=== PATIENT | female | born 1935 | race Caucasian/White ===

== ENCOUNTER → 2017-09-04 11:36 | Outpatient (CLI) | payer MEDICARE, OTHER, SELFPAY ==
[2017-09-04 12:32] LABS: Add Manual Diff / Slide Review NO; Basophils Percent Auto 0.4 % (0-2); Eosinophils Percent Auto 1.8 % (2-4); Hematocrit 34.4 % (36-46); Hemoglobin 11.1 g/dL (12.0-16.0); Lymphocytes Percent Auto 13.3 % (25-40); Mean Corpuscular HGB Conc 32.3 % (30-36); Mean Corpuscular Hemoglobin 28.6 PG (26-34); Mean Corpuscular Volume 88.4 fL (80-100); Monocytes Percent Auto 9.4 % (3-14); Neutrophils Absolute Auto 6600 /uL (3000-5900); Neutrophils Percent Auto 75.1 % (50-75); Platelet Count 263 X10^3/uL (150-400); Red Blood Cell Count 3.89 X10^6/uL (4.0-5.2); Red Cell Distribution Width 16.5 % (11.6-14.8); White Blood Cell Count 8.8 X10^3/uL (4.5-11.0)
[2017-09-04 12:46] LABS: Hemoglobin A1C% w Est Avg Glu 6.5 % (4.0-6.0)
[2017-09-04 13:30] LABS: Alanine Aminotransferase 17 IU/L (9-52); Albumin 3.9 g/dL (3.5-5.0); Albumin Globulin Ratio 1.1 (1.0-2.8); Alkaline Phosphatase 83 U/L (38-126); Aspartate Aminotransferase 16 IU/L (14-36); BUN Creatinine Ratio 23.1 (6-22); Bilirubin Total 0.4 mg/dL (0.2-1.3); Blood Urea Nitrogen 30 mg/dL (7-17); Calcium 9.5 mg/dL (8.4-10.2); Carbon Dioxide 19 mmol/L (22-32); Chloride 105 mmol/L (98-107); Cholesterol 234 mg/dL (140-199); Estimated Glomerular Filt Rate 39.4 mL/min (>60); Globulin 3.4 g/dL (1.7-4.1); Glucose 147 mg/dL (80-110); HDL Cholesterol 35 mg/dL (40-60); HEMOLYSIS < 15 (0-50); LDL Cholesterol Calculated 147 mg/dL (<100); Sodium 135 mmol/L (137-145); Total Protein 7.3 g/dL (6.3-8.2); Triglycerides 262 mg/dL (35-150)
[2017-09-04 13:39] LABS: Potassium 5.4 mmol/L (3.4-5.1)
[2017-09-04 13:56] LABS: Thyroid Stimulating Hormone 2.58 uIU/mL (0.47-4.68)
== END ==
PROVIDERS: PCP Physician Assistant; Visit Provider Physician Assistant
DX: D64.9 Anemia, unspecified (principal); E11.9 Type 2 diabetes mellitus without complications; E03.9 Hypothyroidism, unspecified; I10 Essential (primary) hypertension; E78.2 Mixed hyperlipidemia
CPT/HCPCS: 36415; 80053; 80061; 83036; 84443; 85025

== ENCOUNTER → 2017-09-26 12:43 | Outpatient (CLI) | payer MEDICARE, OTHER, SELFPAY ==
--- NOTE | 2017-09-26 | DI.ECHO.S_ITS ---
[facility] +---------+ : : [address] : : : : [id number] : : : : Phone: [phone] Echocardiogram Report + + :Name: INGRID KIDD Study Date: 09/26/2017 Height: 62.5 in: :[facility] Exam Location: IS Weight: 161 lb : : Gender: Female BSA: 1.8 m2 : :: 1935 Age: 82 yrs BP: 144/52 mmHg: :Reason For Study: MURMUR : : Performed By: Tiffany Gottlieb : :Referring: SOSA BROWN : + + Interpretation Summary There is mild concentric left ventricular hypertrophy. The ejection fraction is estimated to be 55-60%. Septal motion is consistent with conduction abnormality. There is mild mitral regurgitation. There is mild aortic valve sclerosis. There is mild tricuspid regurgitation. The right ventricular systolic pressure is estimated at 31 mmHg assuming a right atrial pressure of 3 mm Hg. Procedure: A two-dimensional transthoracic echocardiogram with color flow and Doppler was performed. The study quality was technically adequate. Comparison is made with the echocardiogram of 04/13/10. The patient had a bundle branch block rhythm during the exam. Left Ventricle: There is mild concentric left ventricular hypertrophy. The left ventricle is normal in size. The left ventricular ejection fraction is normal. The ejection fraction is estimated to be 55-60%. Septal motion is consistent with conduction abnormality. Assessment of diastolic parameters indicates a relaxation abnormality of the left ventricle, consistent with normal filling pressures. Right Ventricle: The right ventricle is normal in size and function. Atria: The left atrium is mildly dilated. The right atrium is mildly dilated. There is no Doppler evidence for an interatrial shunt. Mitral Valve: The mitral valve leaflets appear thickened, but open well. There is mild mitral annular calcification. There is mild mitral regurgitation. Aortic Valve: The aortic valve is trileaflet. There is mild aortic valve sclerosis. The aortic valve opens well. No aortic regurgitation is present. Tricuspid Valve: The tricuspid valve is normal. There is mild tricuspid regurgitation. The right ventricular systolic pressure is estimated at 31 mmHg assuming a right atrial pressure of 3 mm Hg. Pulmonic Valve: The pulmonic valve leaflets are thin and pliable; valve motion is normal. There is a trace or physiologic amount of pulmonic regurgitation. Great Vessels: The aortic root is normal size. The ascending aorta is normal in size. The aortic arch is normal in size. The pulmonary is not well visualized. The IVC is of normal diameter and collapses greater than 50% with a sniff. This suggests a low right atrial pressure of 3 mm Hg. Pericardium/ Pleura There is no pericardial effusion. There is no pleural effusion. MMode/2D Measurements & Calculations LVIDd: 4.4 cm LVOT diam: 2.0 cm LVIDs: 3.0 cm Ao root diam: 2.8 cm FS: 31.5 % asc Aorta Diam: 3.1 cm EPSS: 0.59 cm Ao Arch Diam (Prox Trans): 2.8 cm IVSd: 1.2 cm LVPWd: 1.1 cm LV kraus. diameter/BSA (cm/m^2): 2.5 LV sys. diameter/BSA (cm/m^2): 1.7 LA A2 area: 20.8 cm2 RA long axis: 4.9 cm LA A4 area: 19.4 cm2 RA area: 17.0 cm2 LA length (vol): 5.3 cm RA vol: 50.6 ml LA vol: 65.0 ml RA : 28.8 ml/m2 LA vol index: 37.0 ml/m2 IVC diam: 1.8 cm RVD1 (basal): 3.6 cm RVD2 (mid): 2.7 cm TAPSE: 2.7 cm Doppler Measurements & Calculations Ao V2 max: 134.0 cm/sec LVOT Max Asad: 89.5 cm/sec Ao V2 mean: 98.1 cm/sec LV V1 max P.2 mmHg Ao max P.2 mmHg LV V1 VTI: 19.3 cm Ao mean P.2 mmHg RENETTA(I,D): 2.0 cm2 Ao V2 VTI: 29.4 cm RENETTA(V,D): 2.0 cm2 sev ratio: 0.66 RENETTA indexed to BSA (cm^2/m^2): 1.1 MV E max asad: 78.4 cm/sec TR max asad: 264.2 cm/sec MV A max asad: 98.1 cm/sec TR max P.9 mmHg MV E/A: 0.80 PA V2 max: 99.5 cm/sec Med Peak E' Asad: 3.1 cm/sec PA V2 mean: 61.3 cm/sec E/E' med: 25.7 PA mean P.8 mmHg Lat Peak E' Asad: 4.9 cm/sec PA pr(Accel): 44.1 mmHg E/E' lat: 15.8 E/e' average: 20.8 MV dec time: 0.30 sec MV P1/2t: 90.0 msec MV 2t max asad: 80.0 cm/sec MVA(2t): 2.4 cm2 Reading Physician:05:35 PM
== END ==
PROVIDERS: Family Provider Physician Assistant; PCP Physician Assistant; Visit Provider Physician Assistant
DX: I08.3 Combined rheumatic disorders of mitral, aortic and tricuspid valves (principal); R01.1 Cardiac murmur, unspecified
CPT/HCPCS: 93306

== ENCOUNTER → 2017-12-07 11:07 | Outpatient (CLI) | payer MEDICARE, OTHER, SELFPAY ==
[2017-12-07 12:08] LABS: Add Manual Diff / Slide Review NO; Basophils Percent Auto 1.1 % (0-2); Eosinophils Percent Auto 1.8 % (2-4); Hematocrit 34.7 % (36-46); Hemoglobin 11.2 g/dL (12.0-16.0); Lymphocytes Percent Auto 10.8 % (25-40); Mean Corpuscular HGB Conc 32.3 % (30-36); Mean Corpuscular Hemoglobin 28.1 PG (26-34); Mean Corpuscular Volume 87.1 fL (80-100); Monocytes Percent Auto 9.2 % (3-14); Neutrophils Absolute Auto 8700 /uL (3000-5900); Neutrophils Percent Auto 77.1 % (50-75); Platelet Count 259 X10^3/uL (150-400); Red Blood Cell Count 3.98 X10^6/uL (4.0-5.2); Red Cell Distribution Width 16.2 % (11.6-14.8); White Blood Cell Count 11.3 X10^3/uL (4.5-11.0)
[2017-12-07 12:19] LABS: Hemoglobin A1C% w Est Avg Glu 7.7 % (4.0-6.0)
[2017-12-07 12:46] LABS: Alanine Aminotransferase 27 IU/L (9-52); Albumin 3.8 g/dL (3.5-5.0); Albumin Globulin Ratio 1.5 (1.0-2.8); Alkaline Phosphatase 83 U/L (38-126); Aspartate Aminotransferase 19 IU/L (14-36); BUN Creatinine Ratio 17.5 (6-22); Bilirubin Total 0.4 mg/dL (0.2-1.3); Blood Urea Nitrogen 21 mg/dL (7-17); Calcium 9.6 mg/dL (8.4-10.2); Carbon Dioxide 24 mmol/L (22-32); Chloride 102 mmol/L (98-107); Cholesterol 210 mg/dL (140-199); Estimated Glomerular Filt Rate 43.2 mL/min (>60); Globulin 2.6 g/dL (1.7-4.1); Glucose 187 mg/dL (80-110); HDL Cholesterol 37 mg/dL (40-60); HEMOLYSIS < 15 (0-50); LDL Cholesterol Calculated 112 mg/dL (<100); Sodium 137 mmol/L (137-145); Total Protein 6.4 g/dL (6.3-8.2); Triglycerides 304 mg/dL (35-150)
[2017-12-07 12:47] LABS: Potassium 5.5 mmol/L (3.4-5.1)
== END ==
PROVIDERS: PCP Physician Assistant; Visit Provider Physician Assistant
DX: I10 Essential (primary) hypertension (principal); E78.2 Mixed hyperlipidemia; E11.9 Type 2 diabetes mellitus without complications
CPT/HCPCS: 36415; 80053; 80061; 83036; 85025

== ENCOUNTER → 2018-03-12 09:11 | Outpatient (CLI) | payer MEDICARE, OTHER, SELFPAY ==
[2018-03-12 10:10] LABS: Add Manual Diff / Slide Review NO; Basophils Percent Auto 0.5 % (0-2); Eosinophils Percent Auto 3.1 % (2-4); Hematocrit 38.3 % (36-46); Hemoglobin 12.1 g/dL (12.0-16.0); Lymphocytes Percent Auto 16.3 % (25-40); Mean Corpuscular HGB Conc 31.7 % (30-36); Mean Corpuscular Hemoglobin 27.7 PG (26-34); Mean Corpuscular Volume 87.4 fL (80-100); Monocytes Percent Auto 10.1 % (3-14); Neutrophils Absolute Auto 7800 /uL (1500-7000); Platelet Count 309 X10^3/uL (150-400); Red Blood Cell Count 4.39 X10^6/uL (4.0-5.2); Red Cell Distribution Width 16.3 % (11.6-14.8); White Blood Cell Count 11.1 X10^3/uL (4.5-11.0)
[2018-03-12 10:12] LABS: Hemoglobin A1C% w Est Avg Glu 7.6 % (4.0-6.0)
[2018-03-12 10:18] LABS: Alanine Aminotransferase 23 IU/L (9-52); Albumin 4.1 g/dL (3.5-5.0); Albumin Globulin Ratio 1.4 (1.0-2.8); Alkaline Phosphatase 80 U/L (38-126); Aspartate Aminotransferase 22 IU/L (14-36); Bilirubin Total 0.3 mg/dL (0.2-1.3); Blood Urea Nitrogen 28 mg/dL (7-17); Calcium 9.8 mg/dL (8.4-10.2); Carbon Dioxide 20 mmol/L (22-32); Chloride 105 mmol/L (98-107); Cholesterol 218 mg/dL (140-199); Estimated Glomerular Filt Rate 36.2 mL/min (>60); Glucose 174 mg/dL (80-110); HDL Cholesterol 38 mg/dL (40-60); HEMOLYSIS < 15 (0-50); LDL Cholesterol Calculated 126 mg/dL (<100); Potassium 5.1 mmol/L (3.4-5.1); Sodium 137 mmol/L (137-145); Total Protein 7.1 g/dL (6.3-8.2); Triglycerides 268 mg/dL (35-150)
[2018-03-12 10:40] LABS: Thyroid Stimulating Hormone 5.16 uIU/mL (0.47-4.68)
== END ==
PROVIDERS: Family Provider Physician Assistant; PCP Physician Assistant; Visit Provider Physician Assistant
DX: E11.9 Type 2 diabetes mellitus without complications (principal); E78.2 Mixed hyperlipidemia; E03.9 Hypothyroidism, unspecified; I10 Essential (primary) hypertension; D64.9 Anemia, unspecified
CPT/HCPCS: 36415; 80053; 80061; 83036; 84443; 85025

== ENCOUNTER 2018-08-11 13:26 | Inpatient (IN) | payer MEDICARE, OTHER, SELFPAY ==
[2018-08-11] VITALS (16 sets, daily range): BP systolic 143–180; BP diastolic 57–100; PULSE 74–105; RESP 14–35; TEMP 30.8–37.8; O2SAT 67–98; BMI 31.8; BMI 31.5
--- NOTE | 2018-08-11 13:37 | DI.RAD.S_ITS ---
PROCEDURE: XR CHEST 1V INDICATIONS: SOB TECHNIQUE: One view of the chest was acquired. COMPARISON: [facility], , CHEST 1 VIEW, 11/15/2016, 12:45. FINDINGS: Surgical changes and devices: None. Lungs and pleura: The interval development of diffuse bilateral mid and lower lung zone consolidations with slight loss of vascular distinctness, possibly accentuated by mild respiratory motion. No pneumothorax. No substantial pleural effusion seen. Mediastinum: Cardiomediastinal contours appear stable. Bones and chest wall: No suspicious bony lesions. Overlying soft tissues appear unremarkable. IMPRESSION: Development of diffuse bilateral mid and lower lung zone consolidations. Possible small bilateral pleural effusions. Findings are favored to represent multifocal pneumonia versus pulmonary edema. Recommend clinical correlation. Dictated by: Irineo Zazueta M.D. on 08/11/2018 at 14:27 Approved by: Irineo Zazueta M.D. on 08/11/2018 at 14:29
--- NOTE | 2018-08-11 13:51 | ED.SOB ---
HPI - SOB/Dyspnea General Chief Complaint: Shortness of Breath/Dyspnea Stated Complaint: sob xtoday Time Seen by Provider: 08/11/18 13:26 Source: patient and family Mode of arrival: ambulatory Limitations: altered mental status History of Present Illness 82-year-old female with history of hypertension and hyperlipidemia presents with her granddaughter in severe respiratory distress. Her granddaughter was on the phone with her and noted her to be gasping and went to check on her. On arrival her pulse ox was in the 60s which slowly rebounded when put on non-rebreather. She denies any chest pain nor fever or chills but does admit to some cough as of late. She denies any recent travel. She has had no nausea, vomiting or diarrhea MD Complaint: shortness of breath and cough Onset (ago): hour(s) Severity: severe Consistency/Duration: constant Relieving factors: oxygen and rest Exacerbating factors: exertion Associated symptoms: cough Treatment prior to arrival: none Related Data Home oxygen amount: none Home Medications Medication Instructions Recorded Confirmed allopurinol 300 mg PO QDAY #0 11/15/16 11/21/17 amlodipine 10 mg PO HS #0 11/15/16 11/21/17 aspirin 81 mg PO QDAY #0 11/15/16 11/21/17 cyanocobalamin (vitamin B-12) 1,000 mcg PO QDAY #0 11/15/16 11/21/17 diclofenac sodium [Voltaren] 1 jacquelin TOPICAL #0 11/15/16 11/21/17 fluocinonide 1 jacquelin TOPICAL BID #0 11/15/16 11/21/17 fluoxetine 20 mg PO QDAY #0 11/15/16 11/21/17 fluticasone propionate [Flonase 2 spray INTRANASAL QDAYP PRN #0 11/15/16 11/21/17 Allergy Relief] gabapentin 100 - 200 mg PO Q8HP #0 11/15/16 11/21/17 ketoconazole 1 jacquelin TOPICAL BID #0 11/15/16 11/21/17 linagliptin [Tradjenta] 5 mg PO QDAY #0 11/15/16 11/21/17 metformin [Glucophage XR] 3 tab PO QPM #0 11/15/16 11/21/17 metoprolol tartrate 150 mg PO BID #0 11/15/16 11/21/17 naproxen 500 mg PO PRN #0 11/15/16 11/21/17 omega [id number] oil [Fish Oil] 1,000 mg PO BID #0 11/15/16 11/21/17 omeprazole 40 mg PO QDAY #0 11/15/16 11/21/17 ranitidine HCl [Zantac] 150 mg PO HS #0 11/15/16 11/21/17 venlafaxine 150 mg PO QDAY #0 11/15/16 11/21/17 vitamins A,C,Z-vkpj-qqjmpy 1 cap PO QDAY #0 11/15/16 11/21/17 [PreserVision AREDS] Previous Rx's Medication Instructions Recorded clobetasol 0 TOPICAL BID #1 tube 06/20/17 amitriptyline 10 mg tablet 10 mg PO BID #60 tab 07/09/18 Allergies Allergy/AdvReac Type Severity Reaction Status Date / Time atorvastatin [From LIPITOR] AdvReac Unknown MYALGIAS Verified 08/11/18 13:40 clonazepam [CLONAZEPAM] AdvReac Unknown OVERSEDATIO Verified 08/11/18 13:40 N fenofibrate [FENOFIBRATE] AdvReac Unknown MYALGIAS Verified 08/11/18 13:40 pravastatin [PRAVASTATIN] AdvReac Unknown MYALGIAS Verified 08/11/18 13:40 zolpidem [From AMBIEN] AdvReac Unknown ATYPICAL Verified 08/11/18 13:40 BEHAVIORS/SLEEP WALK Review of Systems Constitutional Denies chills, Denies fever(s), Denies lethargy and Denies weakness Eyes Denies change in vision, Denies eye discharge, Denies irritation and Denies loss of vision ENT Ears, Nose, Mouth, and Throat: Denies change in voice, Denies neck pain and Denies sore throat Cardiovascular Denies chest pain, Denies irregular heart rhythm, Denies lightheadedness, Denies palpitations, Reports dyspnea, Reports dyspnea on exertion and Denies orthopnea Respiratory Reports cough, Reports dyspnea, Reports dyspnea on exertion and Denies wheezing Gastrointestinal Gastrointestinal: Denies abdominal pain, Denies change in bowel habits, Denies diarrhea, Denies nausea and Denies vomiting Genitourinary Denies hematuria, Denies flank pain, Denies urinary incontinence and Denies urinary urgency Musculoskeletal Denies neck pain Integumentary/Breasts Denies pruritus, Denies erythema, Denies rash and Denies wounds Neurologic Denies confusion, Denies loss of vision and Denies weakness Psychiatric Denies anxiety, Denies confusion, Denies depression, Denies homicidal ideation and Denies suicidal ideation Endocrine Denies palpitations Hematologic/Lymphatic Denies easy bruising Allergic/Immunologic Denies wheezing PFSH Social History Smoking Status: Never smoker Social History Smoking Status: Never smoker Exam Narrative Exam Narrative: GENERAL: 82-year-old female in severe respiratory distress with decreased mentation, use of accessory muscles HEAD: Atraumatic. Normocephalic. No temporal or scalp tenderness. EYES: Pupils equal round and reactive. Extraocular motions intact. No scleral icterus. No injection or drainage. ENT: Nose without bleeding, purulent drainage or septal hematoma. Throat without erythema, tonsillar hypertrophy or exudate. Uvula midline. Airway patent. NECK: Trachea midline. No JVD or lymphadenopathy. Supple, nontender, no meningeal signs. CARDIOVASCULAR: Regular rate and rhythm without murmurs, gallops, or rubs. RESPIRATORY: Decreased breath sounds bilaterally rhonchi and prolonged expiratory phase. Short, shallow breaths. Breath sounds decreased on left compared to right GASTROINTESTINAL: Abdomen soft, non-tender, nondistended. No hepato-splenomegaly, or palpable masses. No guarding. EXTREMITIES: No clubbing, cyanosis, or edema. No joint tenderness, effusion, or edema noted. BACK: Nontender without deformity or crepitance. No flank tenderness. NEURO: Confused about location and date but knows her name SKIN: No rash or erythema. Initial Vital Signs Initial Vital Signs: Vital Signs Temperature 99.2 F 08/11/18 13:40 Pulse Rate 105 H 08/11/18 13:40 Respiratory Rate 35 H 08/11/18 13:40 Blood Pressure 150/78 H 08/11/18 13:40 Pulse Oximetry 67 L 08/11/18 13:40 Course Orders Ordered: ED Orders 08/11/18 13:37 XR chest 1V Stat EKG-12 Lead Stat 08/11/18 13:40 B Type Natriuretic Peptide Stat Complete Blood Count AUTO DIFF Stat Comprehensive Metabolic Panel Stat Lactate (Lactic Acid) Stat Lipase Stat Procalcitonin Stat Troponin & CK Cardiac Panel Stat 08/11/18 14:10 Blood Culture Stat 08/11/18 14:15 Arterial Blood Gas Stat 08/11/18 14:58 Consult to Dietitian, Adult Routine 08/11/18 15:00 BiPAP Ventilatory Support RT PROTOCOL 08/12/18 05:00 Basic Metabolic Panel Routine Complete Blood Count AUTO DIFF Routine 08/12/18 05:01 Lactate (Lactic Acid) Stat Enoxaparin Sodium (Lovenox) 30 mg SUBCUT DAILY [facility] Sodium Chloride (Normal Saline 0.9%) 1,000 mls @ 150 mls/hr IV CONT [facility] Last Infusion: 08/11/18 14:33 Dose: 0 mls/hr Admin: 08/11/18 14:26 Dose: 150 mls/hr Levofloxacin (Levaquin) 500 mg in 100 mls @ 100 mls/hr IV NOW ONE Stop: 08/11/18 15:20 Last Admin: 08/11/18 14:35 Dose: 100 mls/hr Sodium Chloride (Normal Saline 0.9%) 2,367 mls @ 789 mls/hr 30 ml/kg infuse over 3 hr (2367 ml) IV NOW ONE Stop: 08/11/18 17:20 Last Admin: 08/11/18 14:35 Dose: 789 mls/hr Famotidine (Pepcid) 20 mg in 50 mls @ 200 mls/hr IV Q24H [facility] Sodium Chloride (Normal Saline 0.9%) 1,000 mls @ 100 mls/hr IV CONT [facility] Ceftriaxone Sodium/Dextrose (Rocephin) 1 gm in 50 mls @ 100 mls/hr IV Q24H [facility] Discontinued Medications Aspirin (Aspirin Chew) 324 mg PO NOW ONE Stop: 08/11/18 13:38 Last Admin: 08/11/18 14:32 Dose: 324 mg Reevaluation(s) Reevaluation #1: Patient showing tremendous improvement on BiPAP severe sepsis recognized at return of lactate @1340 Vital Signs - 8 hr 08/11/18 13:40 08/11/18 13:43 08/11/18 14:00 Temperature 99.2 F Pulse Rate 105 H 95 H Respiratory Rate 35 H 21 Blood Pressure 150/78 H Blood Pressure [Left Arm] 166/61 H Pulse Oximetry 67 L 88 L 93 08/11/18 14:56 Temperature Pulse Rate 79 Respiratory Rate 15 Blood Pressure Blood Pressure [Left Arm] 180/100 H Pulse Oximetry 94 MDM - SOB/Dyspnea Lab Data Result diagrams: 08/11/18 13:40 08/11/18 13:40 Lab Results 08/11/18 08/11/18 08/11/18 Range/Units 13:40 13:40 13:40 WBC 22.6 H (4.5-11.0) X10^3/uL RBC 4.65 (4.0-5.2) X10^6/uL Hgb 13.4 (12.0-16.0) g/dL Hct 41.1 (36-46) % MCV 88.6 (80-100) fL MCH 28.9 (26-34) PG MCHC 32.6 (30-36) % RDW 15.4 H (11.6-14.8) % Plt Count 308 (150-400) X10^3/uL Neut % (Auto) 92.8 H (50-75) % Lymph % (Auto) 2.6 L (25-40) % [place] % (Auto) 4.2 (3-14) % Eos % (Auto) 0.1 L (2-4) % Baso % (Auto) 0.3 (0-2) % Neut # (Auto) 17460 H (6271-3579) /uL Lymph # (Auto) 600 L (8086-1100) /uL [place] # (Auto) 900 (0-900) /uL Eos # (Auto) 0 (0-450) /uL Baso # (Auto) 100 (0-100) /uL ABG pH (7.35-7.45) ABG pCO2 (35-45) mmHg ABG pO2 (80-100) mmHg ABG HCO3 (22-26) mmol/L ABG Total CO2 (21-31) mmol/L ABG O2 Saturation (95-100) % ABG Base Excess (-2-2) mmol/L FiO2 Sodium 134 L (137-145) mmol/L Potassium 5.4 H (3.4-5.1) mmol/L Chloride 102 (98-107) mmol/L Carbon Dioxide 20 L (22-32) mmol/L BUN 22 H (7-17) mg/dL Creatinine 1.30 H (0.52-1.04) mg/dL Estimated GFR 39.4 L (>60) mL/min BUN/Creatinine Ratio 16.9 (6-22) Glucose 302 H (80-110) mg/dL Lactate (0.7-2.1) mmol/L Calcium 9.7 (8.4-10.2) mg/dL Total Bilirubin 0.5 (0.2-1.3) mg/dL AST 33 (14-36) IU/L ALT 30 (9-52) IU/L Alkaline Phosphatase 79 (38-126) U/L Total Creatine Kinase 51 (30-135) U/L CK-MB (CK-2) TNP CK-MB (CK-2) Rel Index TNP Troponin I < 0.012 (0.01-0.034) ng/mL B-Natriuretic Peptide 293 H (<100) Total Protein 7.0 (6.3-8.2) g/dL Albumin 4.1 (3.5-5.0) g/dL Globulin 2.9 (1.7-4.1) g/dL Albumin/Globulin Ratio 1.4 (1.0-2.8) Lipase 84 (23-300) U/L Procalcitonin 0.13 (<0.5) ng/mL 08/11/18 08/11/18 Range/Units 13:40 14:15 WBC (4.5-11.0) X10^3/uL RBC (4.0-5.2) X10^6/uL Hgb (12.0-16.0) g/dL Hct (36-46) % MCV (80-100) fL MCH (26-34) PG MCHC (30-36) % RDW (11.6-14.8) % Plt Count (150-400) X10^3/uL Neut % (Auto) (50-75) % Lymph % (Auto) (25-40) % [place] % (Auto) (3-14) % Eos % (Auto) (2-4) % Baso % (Auto) (0-2) % Neut # (Auto) (2528-5626) /uL Lymph # (Auto) (7419-0170) /uL [place] # (Auto) (0-900) /uL Eos # (Auto) (0-450) /uL Baso # (Auto) (0-100) /uL ABG pH 7.32 L (7.35-7.45) ABG pCO2 34.7 L (35-45) mmHg ABG pO2 77 L (80-100) mmHg ABG HCO3 18 L (22-26) mmol/L ABG Total CO2 19 L (21-31) mmol/L ABG O2 Saturation 94 L (95-100) % ABG Base Excess -8.0 L (-2-2) mmol/L FiO2 0.50 Sodium (137-145) mmol/L Potassium (3.4-5.1) mmol/L Chloride (98-107) mmol/L Carbon Dioxide (22-32) mmol/L BUN (7-17) mg/dL Creatinine (0.52-1.04) mg/dL Estimated GFR (>60) mL/min BUN/Creatinine Ratio (6-22) Glucose (80-110) mg/dL Lactate 3.6 H (0.7-2.1) mmol/L Calcium (8.4-10.2) mg/dL Total Bilirubin (0.2-1.3) mg/dL AST (14-36) IU/L ALT (9-52) IU/L Alkaline Phosphatase (38-126) U/L Total Creatine Kinase (30-135) U/L CK-MB (CK-2) CK-MB (CK-2) Rel Index Troponin I (0.01-0.034) ng/mL B-Natriuretic Peptide (<100) Total Protein (6.3-8.2) g/dL Albumin (3.5-5.0) g/dL Globulin (1.7-4.1) g/dL Albumin/Globulin Ratio (1.0-2.8) Lipase (23-300) U/L Procalcitonin (<0.5) ng/mL Discharge Plan Departure Patient Disposition: Admitted As Inpatient Clinical Impression: Sepsis with acute hypoxic respiratory failure, Severe sepsis Community acquired pneumonia Qualifiers: Laterality: unspecified laterality Qualified Code(s): J18.9 - Pneumonia, unspecified organism Referrals: Bina Montes PA-C [Primary Care Provider] -
[2018-08-11 13:56] LABS: Add Manual Diff / Slide Review NO; Basophils Absolute Auto 100 /uL (0-100); Basophils Percent Auto 0.3 % (0-2); Eosinophils Absolute Auto 0 /uL (0-450); Eosinophils Percent Auto 0.1 % (2-4); Hematocrit 41.1 % (36-46); Hemoglobin 13.4 g/dL (12.0-16.0); Lymphocytes Absolute Auto 600 /uL (1100-4500); Lymphocytes Percent Auto 2.6 % (25-40); Mean Corpuscular HGB Conc 32.6 % (30-36); Mean Corpuscular Hemoglobin 28.9 PG (26-34); Mean Corpuscular Volume 88.6 fL (80-100); Monocytes Absolute Auto 900 /uL (0-900); Monocytes Percent Auto 4.2 % (3-14); Neutrophils Absolute Auto 20900 /uL (1500-7000); Neutrophils Percent Auto 92.8 % (50-75); Platelet Count 308 X10^3/uL (150-400); Red Blood Cell Count 4.65 X10^6/uL (4.0-5.2); Red Cell Distribution Width 15.4 % (11.6-14.8); White Blood Cell Count 22.6 X10^3/uL (4.5-11.0)
--- NOTE | 2018-08-11 14:01 | PC.NURSE ---
Pt to ER 11 via w/c accompanied by family member. C/O SOB since yesterday. Pt lives alone and unable to speak due to shortness of breath. O2 stats 67% on R/A. RT called. Pt placed on Bipap.
[2018-08-11 14:08] LABS: Alanine Aminotransferase 30 IU/L (9-52); Albumin 4.1 g/dL (3.5-5.0); Albumin Globulin Ratio 1.4 (1.0-2.8); Alkaline Phosphatase 79 U/L (38-126); Aspartate Aminotransferase 33 IU/L (14-36); BUN Creatinine Ratio 16.9 (6-22); Bilirubin Total 0.5 mg/dL (0.2-1.3); Blood Urea Nitrogen 22 mg/dL (7-17); Calcium 9.7 mg/dL (8.4-10.2); Carbon Dioxide 20 mmol/L (22-32); Chloride 102 mmol/L (98-107); Creatine Kinase 51 U/L (30-135); Estimated Glomerular Filt Rate 39.4 mL/min (>60); Globulin 2.9 g/dL (1.7-4.1); Glucose 302 mg/dL (80-110); HEMOLYSIS 16 (0-50); Lipase 84 U/L (23-300); Sodium 134 mmol/L (137-145)
--- NOTE | 2018-08-11 14:10 | PC.NURSE ---
[employer] at bedside for 2nd set of BC. Grand daughter at bedside. Pt on bipap. AA&Ox 3 at this time. Tolerating Bipap at 12/6 60%
[2018-08-11 14:15] LABS: Lactate (Lactic Acid) 3.6 mmol/L (0.7-2.1)
[2018-08-11 14:16] LABS: Potassium 5.4 mmol/L (3.4-5.1)
--- NOTE | 2018-08-11 14:16 | PC.NURSE ---
Lactic Acid 3.6. notified.
[2018-08-11 14:20] LABS: Troponin I < 0.012 ng/mL (0.01-0.034)
[2018-08-11] MEDS: SODIUM CHLORIDE 0.9% 1,000 ML 150 ML IV (14:26)
--- NOTE | 2018-08-11 14:27 | ED_ITS ---
HPI - SOB/Dyspnea General Chief Complaint: Shortness of Breath/Dyspnea Stated Complaint: sob xtoday Time Seen by Provider: 08/11/18 13:26 Source: patient and family Mode of arrival: ambulatory Limitations: altered mental status History of Present Illness 82-year-old female with history of hypertension and hyperlipidemia presents with her granddaughter in severe respiratory distress. Her granddaughter was on the phone with her and noted her to be gasping and went to check on her. On arrival her pulse ox was in the 60s which slowly rebounded when put on non-rebreather. She denies any chest pain nor fever or chills but does admit to some cough as of late. She denies any recent travel. She has had no nausea, vomiting or diarrhea MD Complaint: shortness of breath and cough Onset (ago): hour(s) Severity: severe Consistency/Duration: constant Relieving factors: oxygen and rest Exacerbating factors: exertion Associated symptoms: cough Treatment prior to arrival: none Related Data Home oxygen amount: none Home Medications Medication Instructions Recorded Confirmed allopurinol 300 mg PO QDAY #0 11/15/16 11/21/17 amlodipine 10 mg PO HS #0 11/15/16 11/21/17 aspirin 81 mg PO QDAY #0 11/15/16 11/21/17 cyanocobalamin (vitamin B-12) 1,000 mcg PO QDAY #0 11/15/16 11/21/17 diclofenac sodium [Voltaren] 1 jacquelin TOPICAL #0 11/15/16 11/21/17 fluocinonide 1 jacquelin TOPICAL BID #0 11/15/16 11/21/17 fluoxetine 20 mg PO QDAY #0 11/15/16 11/21/17 fluticasone propionate [Flonase 2 spray INTRANASAL QDAYP PRN #0 11/15/16 11/21/17 Allergy Relief] gabapentin 100 - 200 mg PO Q8HP #0 11/15/16 11/21/17 ketoconazole 1 jacquelin TOPICAL BID #0 11/15/16 11/21/17 linagliptin [Tradjenta] 5 mg PO QDAY #0 11/15/16 11/21/17 metformin [Glucophage XR] 3 tab PO QPM #0 11/15/16 11/21/17 metoprolol tartrate 150 mg PO BID #0 11/15/16 11/21/17 naproxen 500 mg PO PRN #0 11/15/16 11/21/17 omega 5-zmg-rci-fish oil [Fish Oil] 1,000 mg PO BID #0 11/15/16 11/21/17 omeprazole 40 mg PO QDAY #0 11/15/16 11/21/17 ranitidine HCl [Zantac] 150 mg PO HS #0 11/15/16 11/21/17 venlafaxine 150 mg PO QDAY #0 11/15/16 11/21/17 vitamins A,C,O-hfye-nbljgj 1 cap PO QDAY #0 11/15/16 11/21/17 [PreserVision AREDS] Previous Rx's Medication Instructions Recorded clobetasol 0 TOPICAL BID #1 tube 06/20/17 amitriptyline 10 mg tablet 10 mg PO BID #60 tab 07/09/18 Allergies Allergy/AdvReac Type Severity Reaction Status Date / Time atorvastatin [From LIPITOR] AdvReac Unknown MYALGIAS Verified 08/11/18 13:40 clonazepam [CLONAZEPAM] AdvReac Unknown OVERSEDATIO Verified 08/11/18 13:40 N fenofibrate [FENOFIBRATE] AdvReac Unknown MYALGIAS Verified 08/11/18 13:40 pravastatin [PRAVASTATIN] AdvReac Unknown MYALGIAS Verified 08/11/18 13:40 zolpidem [From AMBIEN] AdvReac Unknown ATYPICAL Verified 08/11/18 13:40 BEHAVIORS/SLEEP WALK Review of Systems Constitutional Denies chills, Denies fever(s), Denies lethargy and Denies weakness Eyes Denies change in vision, Denies eye discharge, Denies irritation and Denies loss of vision ENT Ears, Nose, Mouth, and Throat: Denies change in voice, Denies neck pain and Denies sore throat Cardiovascular Denies chest pain, Denies irregular heart rhythm, Denies lightheadedness, Denies palpitations, Reports dyspnea, Reports dyspnea on exertion and Denies orthopnea Respiratory Reports cough, Reports dyspnea, Reports dyspnea on exertion and Denies wheezing Gastrointestinal Gastrointestinal: Denies abdominal pain, Denies change in bowel habits, Denies diarrhea, Denies nausea and Denies vomiting Genitourinary Denies hematuria, Denies flank pain, Denies urinary incontinence and Denies urinary urgency Musculoskeletal Denies neck pain Integumentary/Breasts Denies pruritus, Denies erythema, Denies rash and Denies wounds Neurologic Denies confusion, Denies loss of vision and Denies weakness Psychiatric Denies anxiety, Denies confusion, Denies depression, Denies homicidal ideation and Denies suicidal ideation Endocrine Denies palpitations Hematologic/Lymphatic Denies easy bruising Allergic/Immunologic Denies wheezing PFSH Social History Smoking Status: Never smoker Social History Smoking Status: Never smoker Exam Narrative Exam Narrative: GENERAL: 82-year-old female in severe respiratory distress with decreased mentation, use of accessory muscles HEAD: Atraumatic. Normocephalic. No temporal or scalp tenderness. EYES: Pupils equal round and reactive. Extraocular motions intact. No scleral ic terus. No injection or drainage. ENT: Nose without bleeding, purulent drainage or septal hematoma. Throat without erythema, tonsillar hypertrophy or exudate. Uvula midline. Airway patent. NECK: Trachea midline. No JVD or lymphadenopathy. Supple, nontender, no meningeal signs. CARDIOVASCULAR: Regular rate and rhythm without murmurs, gallops, or rubs. RESPIRATORY: Decreased breath sounds bilaterally rhonchi and prolonged expiratory phase. Short, shallow breaths. Breath sounds decreased on left compared to right GASTROINTESTINAL: Abdomen soft, non-tender, nondistended. No hepato-splenomegaly , or palpable masses. No guarding. EXTREMITIES: No clubbing, cyanosis, or edema. No joint tenderness, effusion, or edema noted. BACK: Nontender without deformity or crepitance. No flank tenderness. NEURO: Confused about location and date but knows her name SKIN: No rash or erythema. Initial Vital Signs Initial Vital Signs: Vital Signs Temperature 99.2 F 08/11/18 13:40 Pulse Rate 105 H 08/11/18 13:40 Respiratory Rate 35 H 08/11/18 13:40 Blood Pressure 150/78 H 08/11/18 13:40 Pulse Oximetry 67 L 08/11/18 13:40 Course Orders Ordered: ED Orders 08/11/18 13:37 XR chest 1V Stat EKG-12 Lead Stat 08/11/18 13:40 B Type Natriuretic Peptide Stat Complete Blood Count AUTO DIFF Stat Comprehensive Metabolic Panel Stat Lactate (Lactic Acid) Stat Lipase Stat Procalcitonin Stat Troponin & CK Cardiac Panel Stat 08/11/18 14:10 Blood Culture Stat 08/11/18 14:15 Arterial Blood Gas Stat 08/11/18 14:58 Consult to Dietitian, Adult Routine 08/11/18 15:00 BiPAP Ventilatory Support RT PROTOCOL 08/12/18 05:00 Basic Metabolic Panel Routine Complete Blood Count AUTO DIFF Routine 08/12/18 05:01 Lactate (Lactic Acid) Stat Enoxaparin Sodium (Lovenox) 30 mg SUBCUT DAILY [facility] Sodium Chloride (Normal Saline 0.9%) 1,000 mls @ 150 mls/hr IV CONT WILI Last Infusion: 08/11/18 14:33 Dose: 0 mls/hr Admin: 08/11/18 14:26 Dose: 150 mls/hr Levofloxacin (Levaquin) 500 mg in 100 mls @ 100 mls/hr IV NOW ONE Stop: 08/11/18 15:20 Last Admin: 08/11/18 14:35 Dose: 100 mls/hr Sodium Chloride (Normal Saline 0.9%) 2,367 mls @ 789 mls/hr 30 ml/kg infuse over 3 hr (2367 ml) IV NOW ONE Stop: 08/11/18 17:20 Last Admin: 08/11/18 14:35 Dose: 789 mls/hr Famotidine (Pepcid) 20 mg in 50 mls @ 200 mls/hr IV Q24H [facility] Sodium Chloride (Normal Saline 0.9%) 1,000 mls @ 100 mls/hr IV CONT [facility] Ceftriaxone Sodium/Dextrose (Rocephin) 1 gm in 50 mls @ 100 mls/hr IV Q24H [facility] Discontinued Medications Aspirin (Aspirin Chew) 324 mg PO NOW ONE Stop: 08/11/18 13:38 Last Admin: 08/11/18 14:32 Dose: 324 mg Reevaluation(s) Reevaluation #1: Patient showing tremendous improvement on BiPAP severe sepsis recognized at return of lactate @1340 Vital Signs - 8 hr 08/11/18 13:40 08/11/18 13:43 08/11/18 14:00 Temperature 99.2 F Pulse Rate 105 H 95 H Respiratory Rate 35 H 21 Blood Pressure 150/78 H Blood Pressure [Left Arm] 166/61 H Pulse Oximetry 67 L 88 L 93 08/11/18 14:56 Temperature Pulse Rate 79 Respiratory Rate 15 Blood Pressure Blood Pressure [Left Arm] 180/100 H Pulse Oximetry 94 MDM - SOB/Dyspnea Lab Data Result diagrams: 08/11/18 13:40 08/11/18 13:40 Lab Results 08/11/18 08/11/18 08/11/18 Range/Units 13:40 13:40 13:40 WBC 22.6 H (4.5-11.0) X10^3/uL RBC 4.65 (4.0-5.2) X10^6/uL Hgb 13.4 (12.0-16.0) g/dL Hct 41.1 (36-46) % MCV 88.6 (80-100) fL MCH 28.9 (26-34) PG MCHC 32.6 (30-36) % RDW 15.4 H (11.6-14.8) % Plt Count 308 (150-400) X10^3/uL Neut % (Auto) 92.8 H (50-75) % Lymph % (Auto) 2.6 L (25-40) % [place] % (Auto) 4.2 (3-14) % Eos % (Auto) 0.1 L (2-4) % Baso % (Auto) 0.3 (0-2) % Neut # (Auto) 76945 H (8007-7800) /uL Lymph # (Auto) 600 L (1264-6720) /uL [place] # (Auto) 900 (0-900) /uL Eos # (Auto) 0 (0-450) /uL Baso # (Auto) 100 (0-100) /uL ABG pH (7.35-7.45) ABG pCO2 (35-45) mmHg ABG pO2 (80-100) mmHg ABG HCO3 (22-26) mmol/L ABG Total CO2 (21-31) mmol/L ABG O2 Saturation (95-100) % ABG Base Excess (-2-2) mmol/L FiO2 Sodium 134 L (137-145) mmol/L Potassium 5.4 H (3.4-5.1) mmol/L Chloride 102 (98-107) mmol/L Carbon Dioxide 20 L (22-32) mmol/L BUN 22 H (7-17) mg/dL Creatinine 1.30 H (0.52-1.04) mg/dL Estimated GFR 39.4 L (>60) mL/min BUN/Creatinine Ratio 16.9 (6-22) Glucose 302 H (80-110) mg/dL Lactate (0.7-2.1) mmol/L Calcium 9.7 (8.4-10.2) mg/dL Total Bilirubin 0.5 (0.2-1.3) mg/dL AST 33 (14-36) IU/L ALT 30 (9-52) IU/L Alkaline Phosphatase 79 (38-126) U/L Total Creatine Kinase 51 (30-135) U/L CK-MB (CK-2) TNP CK-MB (CK-2) Rel Index TNP Troponin I < 0.012 (0.01-0.034) ng/mL B-Natriuretic Peptide 293 H (<100) Total Protein 7.0 (6.3-8.2) g/dL Albumin 4.1 (3.5-5.0) g/dL Globulin 2.9 (1.7-4.1) g/dL Albumin/Globulin Ratio 1.4 (1.0-2.8) Lipase 84 (23-300) U/L Procalcitonin 0.13 (<0.5) ng/mL 08/11/18 08/11/18 Range/Units 13:40 14:15 WBC (4.5-11.0) X10^3/uL RBC (4.0-5.2) X10^6/uL Hgb (12.0-16.0) g/dL Hct (36-46) % MCV (80-100) fL MCH (26-34) PG MCHC (30-36) % RDW (11.6-14.8) % Plt Count (150-400) X10^3/uL Neut % (Auto) (50-75) % Lymph % (Auto) (25-40) % [place] % (Auto) (3-14) % Eos % (Auto) (2-4) % Baso % (Auto) (0-2) % Neut # (Auto) (7793-5439) /uL Lymph # (Auto) (6002-0088) /uL [place] # (Auto) (0-900) /uL Eos # (Auto) (0-450) /uL Baso # (Auto) (0-100) /uL ABG pH 7.32 L (7.35-7.45) ABG pCO2 34.7 L (35-45) mmHg ABG pO2 77 L (80-100) mmHg ABG HCO3 18 L (22-26) mmol/L ABG Total CO2 19 L (21-31) mmol/L ABG O2 Saturation 94 L (95-100) % ABG Base Excess -8.0 L (-2-2) mmol/L FiO2 0.50 Sodium (137-145) mmol/L Potassium (3.4-5.1) mmol/L Chloride (98-107) mmol/L Carbon Dioxide (22-32) mmol/L BUN (7-17) mg/dL Creatinine (0.52-1.04) mg/dL Estimated GFR (>60) mL/min BUN/Creatinine Ratio (6-22) Glucose (80-110) mg/dL Lactate 3.6 H (0.7-2.1) mmol/L Calcium (8.4-10.2) mg/dL Total Bilirubin (0.2-1.3) mg/dL AST (14-36) IU/L ALT (9-52) IU/L Alkaline Phosphatase (38-126) U/L Total Creatine Kinase (30-135) U/L CK-MB (CK-2) CK-MB (CK-2) Rel Index Troponin I (0.01-0.034) ng/mL B-Natriuretic Peptide (<100) Total Protein (6.3-8.2) g/dL Albumin (3.5-5.0) g/dL Globulin (1.7-4.1) g/dL Albumin/Globulin Ratio (1.0-2.8) Lipase (23-300) U/L Procalcitonin (<0.5) ng/mL Discharge Plan Departure Patient Disposition: Admitted As Inpatient Clinical Impression: Sepsis with acute hypoxic respiratory failure, Severe sepsis Community acquired pneumonia Qualifiers: Laterality: unspecified laterality Qualified Code(s): J18.9 - Pneumonia, unspecified organism Referrals: Bina Montes PA-C [Primary Care Provider] -
[2018-08-11 14:30] LABS: B Type Natriuretic Peptide 293 (<100)
[2018-08-11] MEDS: ASPIRIN 81 MG TAB 324 MG PO (14:32)
[2018-08-11] MEDS: SODIUM CHLORIDE 0.9% 789 ML IV (14:35)
[2018-08-11] MEDS: levoFLOXacin 500 MG/100 ML PIGGYBACK 100 MG IV (14:35)
[2018-08-11 14:37] LABS: Procalcitonin 0.13 ng/mL (<0.5)
--- NOTE | 2018-08-11 14:59 | PC.NURSE ---
Pt tolerating Bipap at this time. Family member at bedside. Conversing with family member. Denies any pain at this time. Pt and family aware of plan of care and admission. Awaiting on room placement. Will continue to monitor.
[2018-08-11 15:02] LABS: PCO2 ABG 34.7 mmHg (35-45); pH ABG 7.32 (7.35-7.45)
--- NOTE | 2018-08-11 15:02 | P.HP_ITS ---
History of Present Illness Date Patient Seen: 08/11/18 Time Patient Seen: 15:26 Chief complaint: sob xtoday Narrative: This is an 82-year-old female presenting to the emergency department this morning with sudden onset of pneumonia, confusion, hypoxia. She appears to have acute sepsis with a lactate of 3.6 and white blood count of 22. She spent yesterday at her grandson's graduation from high school in [place], came home and went to bed normally and when she woke up this morning was apparently ill. It is challenging to piece together the events as she is wearing a BiPAP mask and also seems somewhat confused by what happened. She tends to be tangential. Her granddaughter Lroen Self is present and explains that at 11:30 a.m. this morning she called her to invite her to dinner. Within a minute she realized that her grandmother was incoherent and so went right over to get her and bring her to the hospital. She admits having some chills but denies fevers. She had mild substernal chest pain but no reported cough. On presentation to the emergency department she was 65% on room air and the chest x-ray shows bilateral pneumonia.. She lives alone in her own house 4 blocks away from the hospital. She has had pneumonia once before apparently related to an episode of shingles. She is not a smoker but did smoke until she was age 42 approximately. She is not on any inhalers. There is no wheezing. Patient History Medical History (Updated 08/11/18 @ 15:32 by Brittney Sy MD) Depression (Acute) Diabetes (Acute) GERD (gastroesophageal reflux disease) (Acute) Gout (Acute) Hypertension (Acute) Surgical History (Updated 08/11/18 @ 15:31 by Brittney Sy MD) History of appendectomy (Acute) History of tonsillectomy (Acute) Family History (Updated 08/11/18 @ 15:32 by Brittney Sy MD) Father Myocardial infarct Mother History of abdominal surgery Social History Smoking Status: Never smoker Family & Social History Tobacco & Substance use: Smoking Status Never smoker Substance Use Type does not use Comment: She lives alone in her own home, 4 [address] from [address] hospital. She stopped smoking at around age 42. She stopped drinking alcohol about 40 years ago. She denies illicit drugs and marijuana. She has a large family. Her backup decision makers include Abimbola Irizarry, her daughter and all also her granddaughter Loren Self, who lives near her and is with her today. Meds Home Medications Medication Instructions Recorded Confirmed Type allopurinol 300 mg PO QDAY #0 11/15/16 11/21/17 History amlodipine 10 mg PO HS #0 11/15/16 11/21/17 History aspirin 81 mg PO QDAY #0 11/15/16 11/21/17 History cyanocobalamin (vitamin B-12) 1,000 mcg PO QDAY #0 11/15/16 11/21/17 History diclofenac sodium [Voltaren] 1 jacquelin TOPICAL #0 11/15/16 11/21/17 History fluocinonide 1 jacquelin TOPICAL BID #0 11/15/16 11/21/17 History fluoxetine 20 mg PO QDAY #0 11/15/16 11/21/17 History fluticasone propionate [Flonase 2 spray INTRANASAL QDAYP PRN #0 11/15/16 11/21/17 History Allergy Relief] gabapentin 100 - 200 mg PO Q8HP #0 11/15/16 11/21/17 History ketoconazole 1 jacquelin TOPICAL BID #0 11/15/16 11/21/17 History linagliptin [Tradjenta] 5 mg PO QDAY #0 11/15/16 11/21/17 History metformin [Glucophage XR] 3 tab PO QPM #0 11/15/16 11/21/17 History metoprolol tartrate 150 mg PO BID #0 11/15/16 11/21/17 History naproxen 500 mg PO PRN #0 11/15/16 11/21/17 History omega 0-ysg-fyo-fish oil [Fish Oil] 1,000 mg PO BID #0 11/15/16 11/21/17 History omeprazole 40 mg PO QDAY #0 11/15/16 11/21/17 History ranitidine HCl [Zantac] 150 mg PO HS #0 11/15/16 11/21/17 History venlafaxine 150 mg PO QDAY #0 11/15/16 11/21/17 History vitamins A,C,D-lluv-erttvh 1 cap PO QDAY #0 11/15/16 11/21/17 History [PreserVision AREDS] clobetasol 0 TOPICAL BID #1 tube 06/20/17 11/21/17 Rx amitriptyline 10 mg tablet 10 mg PO BID #60 tab 07/09/18 Rx Allergies Allergy/AdvReac Type Severity Reaction Status Date / Time atorvastatin [From LIPITOR] AdvReac Unknown MYALGIAS Verified 08/11/18 13:40 clonazepam [CLONAZEPAM] AdvReac Unknown OVERSEDATIO Verified 08/11/18 13:40 N fenofibrate [FENOFIBRATE] AdvReac Unknown MYALGIAS Verified 08/11/18 13:40 pravastatin [PRAVASTATIN] AdvReac Unknown MYALGIAS Verified 08/11/18 13:40 zolpidem [From AMBIEN] AdvReac Unknown ATYPICAL Verified 08/11/18 13:40 BEHAVIORS/SLEEP WALK Review of Systems Review of Systems Positive for confusion, chills, hypoxia, shortness of breath. Negative for exertional chest pain, coughing, fevers, abdominal pain, nausea, vomiting, bleeding, rash, diarrhea, hematuria, joint pain, seizures, headaches, new allergies, hearing loss, trouble talking, trouble walking. All systems reviewed & are unremarkable except as noted in HPI and below Exam Vital Signs (past 8 hours): - 08/11/18 13:40 08/11/18 13:43 08/11/18 14:00 Temperature 99.2 F Pulse Rate 105 H 95 H Respiratory Rate 35 H 21 Blood Pressure 150/78 H Blood Pressure [Left Arm] 166/61 H Pulse Oximetry 67 L 88 L 93 08/11/18 14:56 Temperature Pulse Rate 79 Respiratory Rate 15 Blood Pressure Blood Pressure [Left Arm] 180/100 H Pulse Oximetry 94 Oxygen Delivery Method BiPAP Oxygen Flow Rate 6 Narrative Exam Narrative: She is alert and oriented x3. She is wearing a BiPAP mask which muffles her voice. She tends to be tangential when answering questions. She is in no current distress but had been very recently. Pupils are equally round and reactive to light and accommodation. Sclerae are pink and nonicteric. Extraocular muscles are intact. Throat exam appears to be normal but is limited by her BiPAP mask. No lymph nodes are felt head, neck, supra clavicular area. There is no thyromegaly. JVD is less than 6 cm. No carotid bruits are heard. Heart is regular rate and rhythm without murmur. Lungs are clear to auscultation bilaterally while wearing the BiPAP mask and ventilator. Abdomen is soft, obese, nontender, no organomegaly. Extremities have no ankle edema. Skin exam no rashes or jaundice. Neuro exam motor function is 4/5 throughout. Deep tendon reflexes are normal. Cranial nerves 2-12 tested intact. There is no tremor. Objective Labs Result Diagrams: 08/11/18 13:40 08/11/18 13:40 Labs: Laboratory Results - last 24 hr 08/11/18 08/11/18 08/11/18 13:40 13:40 13:40 WBC 22.6 H RBC 4.65 Hgb 13.4 Hct 41.1 MCV 88.6 MCH 28.9 MCHC 32.6 RDW 15.4 H Plt Count 308 Neut % (Auto) 92.8 H Lymph % (Auto) 2.6 L [place] % (Auto) 4.2 Eos % (Auto) 0.1 L Baso % (Auto) 0.3 Neut # (Auto) 14163 H Lymph # (Auto) 600 L [place] # (Auto) 900 Eos # (Auto) 0 Baso # (Auto) 100 Sodium 134 L Potassium 5.4 H Chloride 102 Carbon Dioxide 20 L BUN 22 H Creatinine 1.30 H Estimated GFR 39.4 L BUN/Creatinine Ratio 16.9 Glucose 302 H Lactate Calcium 9.7 Total Bilirubin 0.5 AST 33 ALT 30 Alkaline Phosphatase 79 Total Creatine Kinase 51 CK-MB (CK-2) TNP CK-MB (CK-2) Rel Index TNP Troponin I < 0.012 B-Natriuretic Peptide 293 H Total Protein 7.0 Albumin 4.1 Globulin 2.9 Albumin/Globulin Ratio 1.4 Lipase 84 Procalcitonin 0.13 08/11/18 13:40 WBC RBC Hgb Hct MCV MCH MCHC RDW Plt Count Neut % (Auto) Lymph % (Auto) [place] % (Auto) Eos % (Auto) Baso % (Auto) Neut # (Auto) Lymph # (Auto) [place] # (Auto) Eos # (Auto) Baso # (Auto) Sodium Potassium Chloride Carbon Dioxide BUN Creatinine Estimated GFR BUN/Creatinine Ratio Glucose Lactate 3.6 H Calcium Total Bilirubin AST ALT Alkaline Phosphatase Total Creatine Kinase CK-MB (CK-2) CK-MB (CK-2) Rel Index Troponin I B-Natriuretic Peptide Total Protein Albumin Globulin Albumin/Globulin Ratio Lipase Procalcitonin Assessment & Plan Assessment & Plan narrative: Acute hypoxic respiratory failure -she confirms that she is full code -she is doing very well on BiPAP at an FiO2 of 50%, mentating well and feeling much better. -watch for signs of COPD/worsening pneumonia/CHF. -she will be admitted to the intensive care unit. Community-acquired left-sided pneumonia -I have reviewed the chest x-ray films myself. The bilateral infiltrates are quite impressive and are suggestive of bacterial pneumonia such as pneumococcus. -continue ceftriaxone and azithromycin. Repeat CBC in the morning along with chest x-ray. Leukocytosis -this appears to be clearly attributable to the paroxysmal onset of pneumonia/sepsis and will be rechecked tomorrow Severe Sepsis criteria met -continue aggressive IV fluid hydration along with protocol lactate levels. -so far she seems to be recovering quite quickly and not needing pressors. -blood cultures are pending. -continue ceftriaxone and azithromycin. Hypertension -holding metoprolol and Amlodipine. Plan to resume as soon as needed. Gout -continue allopurinol, no signs of active gout GERD -begin IV famotidine Diabetes mellitus type 2 -follow blood sugars and hold metformin and Tradjenta due to acute kidney injury and chronic kidney disease status. -add correctional scale insulin as needed. Chronic kidney disease stage III -hydrate and recheck in the morning -with her history of diabetes and hypertension I doubt that this is acute renal injury by itself.
[2018-08-11 15:03] LABS: HCO3 ABG 18 mmol/L (22-26); PO2 ABG 77 mmHg (80-100)
[2018-08-11 15:04] LABS: Oxygen Saturation ABG 94 % (95-100); TCO2 ABG 19 mmol/L (21-31)
[2018-08-11 15:52] LABS: Reflexed Lactate in 2 Hours Y
[2018-08-11 16:46] LABS: Lactate 2HR (Lactic Acid Rflx) 2.4 mmol/L (0.7-2.1)
[2018-08-11] MEDS: FAMOTIDINE 20 MG/50 ML PIGGYBACK 200 MG IV (16:48)
[2018-08-11] MEDS: CEFTRIAXONE 1 GM/50 ML FROZ.PIGGY IV (16:48)
[2018-08-11] MEDS: SODIUM CHLORIDE 0.9% 1,000 ML 100 ML IV (16:54)
[2018-08-11] MEDS: AZITHROMYCIN 500 MG in DEXTROSE 5% IN WATER 250 ML IV (17:59)
--- NOTE | 2018-08-11 21:15 | PC.NURSE ---
marlo naylor pt arrived from ER on nonrebreather mask. Pt unable to lie flat without SOB. Bipap placed by RT. O2 sats maintaining 95+%. Attempted to try pt on high flow cannula for a drink of water and admission questionaire, but sats dropeed to 79% rapidly. Changed to NRB mask and sats up to 88% but pt only able to speak 2-3 words at a time. Bipap resumed. Moose YADAVP in to see pt. Changed pt to heated high flow by RT. pt on 100% O2 with 45 liter flow. 21:30- pt with RR 28-30, speaking 3 words. Will call provider for sleep aid and return to bipap.
[2018-08-11] MEDS: INSULIN ASPART 100 UNIT/ML INSULN PEN SUBCUT (21:50)
[2018-08-11 22:18] LABS: Adenovirus Not Detected (Not Detect)
[2018-08-11 22:19] LABS: Bordetella pertussis Not Detected (Not Detect); Chlamydophila pneumoniae Not Detected (Not Detect); Coronavirus 229E Not Detected (Not Detect); Coronavirus HKU1 Not Detected (Not Detect); Coronavirus NL 63 Not Detected (Not Detect); Coronavirus OC43 Not Detected (Not Detect); Human Metapneumovirus Not Detected (Not Detect); Human Rhinovirus/Enterovirus Not Detected (Not Detect); Influenza A Not Detected (Not Detect); Influenza B Not Detected (Not Detect); Mycoplasma pneumoniae Not Detected (Not Detect); Parainfluenza Virus 1 Not Detected (Not Detect); Parainfluenza Virus 2 Not Detected (Not Detect); Parainfluenza Virus 3 Not Detected (Not Detect); Parainfluenza Virus 4 Not Detected (Not Detect); Respiratory Syncytial Virus Not Detected (Not Detect)
[2018-08-12] VITALS (22 sets, daily range): BP systolic 108–166; BP diastolic 50–89; PULSE 78–119; RESP 10–40; TEMP 0–38.6; O2SAT 89–97
[2018-08-12] MEDS: METOPROLOL IR 25 MG TABLET 100 MG PO (00:31)
[2018-08-12] MEDS: GABAPENTIN 100 MG CAPSULE PO (00:31)
[2018-08-12] MEDS: SODIUM CHLORIDE 0.9% 1,000 ML 100 ML IV ×2 (00:35→22:34)
--- NOTE | 2018-08-12 01:40 | PC.NURSE ---
Addendum entered by Tyler Ball R.N. 08/12/18 07:06: 0200: Assisted to use bedpan, had small formed bowel movement. 0530: Pt awake, pulling at pulse oximeter, attempting to get out of bed. Assisted to use bedpan. Original Note: Concrete Worker Note: 0020: Awake, resting in bed. Pt uncomfortable. Assisted to reposition. Remains on BiPAP. Alert, oriented X3. IVs in place in rt and lt forearms; NS infusing at 100cc/hr.
[2018-08-12 05:15] LABS: Hematocrit 35.6 % (36-46); Hemoglobin 11.2 g/dL (12.0-16.0); Mean Corpuscular HGB Conc 31.5 % (30-36); Mean Corpuscular Hemoglobin 28.1 PG (26-34); Platelet Count 236 X10^3/uL (150-400); Red Cell Distribution Width 15.2 % (11.6-14.8); White Blood Cell Count 29.2 X10^3/uL (4.5-11.0)
[2018-08-12 05:20] LABS: Add Manual Diff / Slide Review YES; Lactate (Lactic Acid) 1.3 mmol/L (0.7-2.1)
[2018-08-12 05:21] LABS: BUN Creatinine Ratio 15.8 (6-22); Blood Urea Nitrogen 19 mg/dL (7-17); Carbon Dioxide 21 mmol/L (22-32); Chloride 106 mmol/L (98-107); Estimated Glomerular Filt Rate 43.1 mL/min (>60); Glucose 187 mg/dL (80-110); HEMOLYSIS < 15 (0-50); Potassium 5.1 mmol/L (3.4-5.1); Sodium 133 mmol/L (137-145)
[2018-08-12 06:04] LABS: Procalcitonin 30.52 ng/mL (<0.5)
[2018-08-12 06:15] LABS: Neutrophils Absolute Manual 26864 /uL (3000-5900); Total Cells Counted 100
[2018-08-12 06:16] LABS: Anisocytosis 2+
--- NOTE | 2018-08-12 07:27 | DI.RAD.S_ITS ---
PROCEDURE: XR CHEST 1V INDICATIONS: Pneumonia TECHNIQUE: One view of the chest was acquired. COMPARISON: [facility], CHEST 1 VIEW, 11/15/2016, 12:45. [facility], , XR CHEST 1V, 08/11/2018, 13:56. FINDINGS: Surgical changes and devices: None. Lungs and pleura: Bilateral pulmonary infiltrates are seen, with air bronchograms, which are similar to the prior examination. No large pleural effusion or large pneumothorax can be seen. Mediastinum: Mediastinal contours appear normal. Heart size is normal. Bones and chest wall: No suspicious bony lesions. Age-appropriate bony degenerative changes are seen. Overlying soft tissues appear unremarkable. IMPRESSION: Prominent bilateral pneumonia. Dictated by: Bismark Tran M.D. on 08/12/2018 at 7:31 Approved by: Bismark Tran M.D. on 08/12/2018 at 7:32
--- NOTE | 2018-08-12 08:20 | P.PN_ITS ---
Subjective Date Patient Seen: 08/12/18 Time Patient Seen: 08:20 Interval history: She is seen in her room in the intensive care unit today to follow-up her bilateral pneumonia and hypoxic respiratory failure. Clinically she looks somewhat better than her tests this morning look. Her white blood count has risen to 29.2. Her chest x-ray looks somewhat worse with bilateral diffuse infiltrates. Her oxygen requirements have increased to 80% FiO2 on the BiPAP. Her pH on the ABG has dropped from 7.32 down to 7.29. The PCO2 has dropped from 20-19 and PO2 has dropped from 77-68. The procalcitonin was 30.5. On admission the BNP was 293, that will be repeated now. The viral PCR is neg ative and the BMP is normal. The lactic acid level is down to normal at 1.3. Exam Vital Signs (past 8 hours): - 08/12/18 01:55 08/12/18 04:00 08/12/18 06:10 Temperature 101.4 F H 100.3 F H 99.3 F Pulse Rate 84 80 80 Respiratory Rate 22 30 H 21 Blood Pressure 148/56 H 133/52 L 132/50 L Pulse Oximetry 89 L 94 94 08/12/18 06:56 08/12/18 07:25 Temperature 99.3 F Pulse Rate 85 Respiratory Rate 25 H Blood Pressure 132/50 L 151/55 H Pulse Oximetry 94 Fraction of Inspired Oxygen 75 Oxygen Delivery Method High Flow Nasal Cannula,Heated High Flow Oxygen Flow Rate 0 Narrative Exam Narrative: She is alert and oriented x3. Trying to communicate with the BiPAP mask on. She looks like she is in mild respiratory distress, not quite as intense appearing as the chest x-ray/white count/procalcitonin/pH would suggest Lungs have heavy bilateral crackles. Heart is regular rate and rhythm without murmur. Extremities have no ankle edema. Objective Labs Result Diagrams: 08/12/18 05:00 08/12/18 05:00 Labs: Laboratory Results - last 24 hr 08/11/18 08/11/18 08/11/18 13:40 13:40 13:40 WBC 22.6 H RBC 4.65 Hgb 13.4 Hct 41.1 MCV 88.6 MCH 28.9 MCHC 32.6 RDW 15.4 H Plt Count 308 Neut % (Auto) 92.8 H Lymph % (Auto) 2.6 L Stanton % (Auto) 4.2 Eos % (Auto) 0.1 L Baso % (Auto) 0.3 Neut # (Auto) 70703 H Lymph # (Auto) 600 L Stanton # (Auto) 900 Eos # (Auto) 0 Baso # (Auto) 100 Total Counted Seg Neutrophils % Band Neutrophils % Lymphocytes % (Manual) Monocytes % (Manual) Neutrophils # (Manual) RBC Morphology Anisocytosis ABG pH ABG pCO2 ABG pO2 ABG HCO3 ABG Total CO2 ABG O2 Saturation ABG Base Excess FiO2 Sodium 134 L Potassium 5.4 H Chloride 102 Carbon Dioxide 20 L BUN 22 H Creatinine 1.30 H Estimated GFR 39.4 L BUN/Creatinine Ratio 16.9 Glucose 302 H Lactate Calcium 9.7 Total Bilirubin 0.5 AST 33 ALT 30 Alkaline Phosphatase 79 Total Creatine Kinase 51 CK-MB (CK-2) TNP CK-MB (CK-2) Rel Index TNP Troponin I < 0.012 B-Natriuretic Peptide 293 H Total Protein 7.0 Albumin 4.1 Globulin 2.9 Albumin/Globulin Ratio 1.4 Lipase 84 Procalcitonin 0.13 Nasal Screen MRSA (PCR) Chlamy pneumoniae PCR Adenovirus (PCR) B.parapertussis DNA PCR Coronavirus OC43 (PCR) Coronavirus HKU1 (PCR) Coronavirus 229E (PCR) Coronavirus NL63 (PCR) Human Metapneumovir PCR Influenza Type A (PCR) Influenza Type B (PCR) M. pneumoniae (PCR) Parainfluenza 1 (PCR) Parainfluenza 2 (PCR) Parainfluenza 3 (PCR) Parainfluenza 4 (PCR) RSV (PCR) Entero/Rhino (PCR) 08/11/18 08/11/18 08/11/18 13:40 14:15 16:15 WBC RBC Hgb Hct MCV MCH MCHC RDW Plt Count Neut % (Auto) Lymph % (Auto) Stanton % (Auto) Eos % (Auto) Baso % (Auto) Neut # (Auto) Lymph # (Auto) Stanton # (Auto) Eos # (Auto) Baso # (Auto) Total Counted Seg Neutrophils % Band Neutrophils % Lymphocytes % (Manual) Monocytes % (Manual) Neutrophils # (Manual) RBC Morphology Anisocytosis ABG pH 7.32 L ABG pCO2 34.7 L ABG pO2 77 L ABG HCO3 18 L ABG Total CO2 19 L ABG O2 Saturation 94 L ABG Base Excess -8.0 L FiO2 0.50 Sodium Potassium Chloride Carbon Dioxide BUN Creatinine Estimated GFR BUN/Creatinine Ratio Glucose Lactate 3.6 H 2.4 H Calcium Total Bilirubin AST ALT Alkaline Phosphatase Total Creatine Kinase CK-MB (CK-2) CK-MB (CK-2) Rel Index Troponin I B-Natriuretic Peptide Total Protein Albumin Globulin Albumin/Globulin Ratio Lipase Procalcitonin Nasal Screen MRSA (PCR) Chlamy pneumoniae PCR Adenovirus (PCR) B.parapertussis DNA PCR Coronavirus OC43 (PCR) Coronavirus HKU1 (PCR) Coronavirus 229E (PCR) Coronavirus NL63 (PCR) Human Metapneumovir PCR Influenza Type A (PCR) Influenza Type B (PCR) M. pneumoniae (PCR) Parainfluenza 1 (PCR) Parainfluenza 2 (PCR) Parainfluenza 3 (PCR) Parainfluenza 4 (PCR) RSV (PCR) Entero/Rhino (PCR) 08/11/18 08/11/18 08/12/18 19:00 20:00 05:00 WBC RBC Hgb Hct MCV MCH MCHC RDW Plt Count Neut % (Auto) Lymph % (Auto) Stanton % (Auto) Eos % (Auto) Baso % (Auto) Neut # (Auto) Lymph # (Auto) Stanton # (Auto) Eos # (Auto) Baso # (Auto) Total Counted Seg Neutrophils % Band Neutrophils % Lymphocytes % (Manual) Monocytes % (Manual) Neutrophils # (Manual) RBC Morphology Anisocytosis ABG pH ABG pCO2 ABG pO2 ABG HCO3 ABG Total CO2 ABG O2 Saturation ABG Base Excess FiO2 Sodium Potassium Chloride Carbon Dioxide BUN Creatinine Estimated GFR BUN/Creatinine Ratio Glucose Lactate 1.3 Calcium Total Bilirubin AST ALT Alkaline Phosphatase Total Creatine Kinase CK-MB (CK-2) CK-MB (CK-2) Rel Index Troponin I B-Natriuretic Peptide Total Protein Albumin Globulin Albumin/Globulin Ratio Lipase Procalcitonin Nasal Screen MRSA (PCR) Negative for mrsa Chlamy pneumoniae PCR Not detected Adenovirus (PCR) Not detected B.parapertussis DNA PCR Not detected Coronavirus OC43 (PCR) Not detected Coronavirus HKU1 (PCR) Not detected Coronavirus 229E (PCR) Not detected Coronavirus NL63 (PCR) Not detected Human Metapneumovir PCR Not detected Influenza Type A (PCR) Not detected Influenza Type B (PCR) Not detected M. pneumoniae (PCR) Not detected Parainfluenza 1 (PCR) Not detected Parainfluenza 2 (PCR) Not detected Parainfluenza 3 (PCR) Not detected Parainfluenza 4 (PCR) Not detected RSV (PCR) Not detected Entero/Rhino (PCR) Not detected 08/12/18 08/12/18 08/12/18 05:00 05:00 05:00 WBC 29.2 H RBC 4.00 Hgb 11.2 L Hct 35.6 L MCV 89.0 MCH 28.1 MCHC 31.5 RDW 15.2 H Plt Count 236 Neut % (Auto) Not Reportable Lymph % (Auto) Not Reportable Stanton % (Auto) Not Reportable Eos % (Auto) Not Reportable Baso % (Auto) Not Reportable Neut # (Auto) Lymph # (Auto) Not Reportable Stanton # (Auto) Not Reportable Eos # (Auto) Baso # (Auto) Not Reportable Total Counted 100 Seg Neutrophils % 74.0 H Band Neutrophils % 18.0 H Lymphocytes % (Manual) 5.0 L Monocytes % (Manual) 3.0 Neutrophils # (Manual) 90386 H RBC Morphology See below Anisocytosis 2+ H ABG pH ABG pCO2 ABG pO2 ABG HCO3 ABG Total CO2 ABG O2 Saturation ABG Base Excess FiO2 Sodium 133 L Potassium 5.1 Chloride 106 Carbon Dioxide 21 L BUN 19 H Creatinine 1.20 H Estimated GFR 43.1 L BUN/Creatinine Ratio 15.8 Glucose 187 H D Lactate Calcium 8.0 L Total Bilirubin AST ALT Alkaline Phosphatase Total Creatine Kinase CK-MB (CK-2) CK-MB (CK-2) Rel Index Troponin I B-Natriuretic Peptide Total Protein Albumin Globulin Albumin/Globulin Ratio Lipase Procalcitonin 30.52 H Nasal Screen MRSA (PCR) Chlamy pneumoniae PCR Adenovirus (PCR) B.parapertussis DNA PCR Coronavirus OC43 (PCR) Coronavirus HKU1 (PCR) Coronavirus 229E (PCR) Coronavirus NL63 (PCR) Human Metapneumovir PCR Influenza Type A (PCR) Influenza Type B (PCR) M. pneumoniae (PCR) Parainfluenza 1 (PCR) Parainfluenza 2 (PCR) Parainfluenza 3 (PCR) Parainfluenza 4 (PCR) RSV (PCR) Entero/Rhino (PCR) Assessment & Plan Assessment & Plan narrative: Acute hypoxic respiratory failure -she confirms that she is full code -she was initially doing very well on BiPAP at an FiO2 of 50%, mentating well and feeling much better, but this morning all test factors suggest worsening, including the chest x-ray, the white blood count, the ABG results. -watch for signs of COPD/worsening pneumonia/CHF. Repeat BNP today as we are giving her appropriate fluid hydration that needs to be regulated closely. -she will continue in the intensive care unit currently on an FIO2 of 80 and tolerating BIPAP well. -todays chest x-ray appearance is consistent with bilateral pneumonia but also has a similar look to ARDS or pulmonary edema. -consider transfer to a hospital with a diesel maintenance electrician available on site. If she does not improve by later today then that might be preferable to waiting until she needs to be intubated and then transferring, etc. Community-acquired Bilateral Pneumonia -The bilateral infiltrates on todays CXR remain suggestive of bacterial pneumonia such as pneumococcus. -continue ceftriaxone and azithromycin. Repeat CBC in the morning along with chest x-ray. Leukocytosis -this appears to be clearly attributable to the paroxysmal onset of pneumonia/sepsis and will be rechecked tomorrow Severe Sepsis criteria met -Adjust IVF today dependent on clinical course. Lactate is now normal. -She has not needed pressors -blood cultures are pending. -continue ceftriaxone and azithromycin. Hypertension -holding metoprolol and Amlodipine. Plan to resume as soon as needed. Gout -continue allopurinol, no signs of active gout GERD -continue IV famotidine Diabetes mellitus type 2 -follow blood sugars and hold metformin and Tradjenta due to acute kidney injury and chronic kidney disease status. -add correctional scale insulin as needed. Chronic kidney disease stage III -The GFR and Creatinine have both improved today after IVF was given overnight -with her history of diabetes and hypertension I doubt that this is acute renal injury by itself. Quality VTE Deep Vein Thrombosis/Pulmonary Embolism Present on Admission: No
[2018-08-12] MEDS: ENOXAPARIN 30 MG/0.3 ML SYRINGE SUBCUT (08:32)
[2018-08-12] MEDS: ASPIRIN EC 81 MG TABLET PO (08:32)
[2018-08-12] MEDS: VIT C/E/ZN/COPPR/LUTEIN/ZEAXAN CAPSULE 1 CAP PO (08:32)
[2018-08-12] MEDS: LEVOTHYROXINE 25 MCG TABLET PO (08:33)
[2018-08-12] MEDS: ALLOPURINOL 300 MG TABLET PO (08:33)
[2018-08-12] MEDS: AMITRIPTYLINE 10 MG TABLET PO (08:33)
[2018-08-12] MEDS: FLUoxetine 20 MG CAPSULE 60 MG PO (08:33)
[2018-08-12] MEDS: INSULIN ASPART 100 UNIT/ML INSULN PEN SUBCUT ×3 (08:34→17:58)
[2018-08-12] MEDS: PANTOPRAZOLE 40 MG TABLET PO (08:35)
[2018-08-12] MEDS: METOPROLOL IR 50 MG TABLET 100 MG PO (08:35)
--- NOTE | 2018-08-12 08:45 | PC.NURSE ---
Addendum entered by Kalpana Wisdom R.N. 08/12/18 14:57: Patients sleeping sats 88%, RR 35, RT called to assess, Dr sy also informed. RT giving duoneb treatment. Dr Sy to consult a stage driver. Increased FIO@ to 85% Addendum entered by Kalpana Wisdom R.N. 08/12/18 14:32: Pt sleeping respirations the 30's. Sats 90% on Bipap 80% FIO2. Dr Sy informed, no new orders at this time. Addendum entered by Kalpana Wisdom R.N. 08/12/18 13:52: Pt incontinent of bowel, patient bathed and repositioned for echo. Patient reports abdominal discomfort is improved. Continue on bipap. Addendum entered by Kalpana Wisdom R.N. 08/12/18 11:54: Pt repositioned to left side per request. Family left beside so patient could rest, pt now sleeping, sats 91% on bipap. BNP draw and results called to Dr Sy, orders received. Addendum entered by Kalpana Wisdom R.N. 08/12/18 11:21: Pt restless, warm c/o pressure and discomfort in her upper left abdomen. Denies chest pain. RT called to assess, changed pressure settings on bipap. Sats 90% 85% FIO2. Dr Sy called and informed of patients abdominal discomfort. No new orders at this time. Original Note: Pt alert, oriented denies pain, removed bipap for meals and medications. Placed on heated hi flow 85% FIO2 and 45L flow. Sats 89% and patient dyspneic . Patient ate oatmeal and took medications. Rt placed patient back on bipap.
--- NOTE | 2018-08-12 08:59 | RT ---
RT note: Bipap removed at 0825 for break/fox/oral care, placed to HHFNC 45/85%. Pt lasted 25 mins, then . Pt ate a small bowl of eggs, oral care performed by nurse Magdalena. Returned to Bipap for dyspnea sx ~0850
--- NOTE | 2018-08-12 10:00 | PT.IPTN ---
Current Diagnoses Sepsis, unspecified organism (08/11/18) Physical Therapy Treatment Note M3 PT-IP Subjective Start: 08/12/18 11:56 Freq: NEEDED Status: Active Protocol: Document 08/12/18 10:00 RCC (Rec: 08/12/18 13:27 RCC [id number]) Subjective Physical Therapy Visit Type Type Cancellation Notes per MD at rounds this a.m. Pt likely not ready for PT until at least tomorrow, Monday. Will keep on our list but will not assess today.
[2018-08-12 10:42] LABS: PCO2 ABG 39.2 mmHg (35-45); PO2 ABG 68 mmHg (80-100); pH ABG 7.29 (7.35-7.45)
--- NOTE | 2018-08-12 10:42 | CM.DANOTE ---
DCP/Assessment: Reviewed chart. Patient is a 82yr old female admitted to [facility] with SOB. PCP listed is Bina Montes. Primary payor is 1)Medicare 2)Commercial. Met with patient and family at bedside explained CM/SW role. Patient currently in room#[address] with B[address] mask in [address] Spoke with RN whom reports that she is trying to limit visitors/noise in room so that patient can rest. Family report that today is patient's 83st birthday. Daughter/Abimbola and niece/Melony in room. At this time, to early to determine d/c planning needs. Patient currently resides alone in [place] with large family in the area. Patient reports being primarily I with all ADL's. MD has ordered therapy evaluation when patient medically stable (hopefully tomorrow 6-10). Patient in agreement to sign Important Message from Medicare. BRINE PLANT OPERATOR left name/number and whiteboard and notified patient that CM team would be back when patient feeling better. P: Pending. Therapy expected to see patient when medically stable. GEORGETTE Mcclain Discharge Planning/Care Management CM Discharge Assessment Start: 08/12/18 10:34 Freq: Status: Active Protocol: Document 08/12/18 10:34 KJS (Rec: 08/12/18 10:41 KJS [id number]) Discharge Planning Assessment Assigned Warm In GEORGETTE Mcclain Contact Information Howie Rankin (daughter) [phone] Advance Directives? Yes History Provided By Patient Family Member Medical Record Prior Living Arrangements House Household Members none Type of transporation used prior to Drives own vehicle admit Independent with ADL's Yes Is patient alert and oriented? Yes: Alert but difficult to understand with BIPAP mask on. Caregiver for Another No Comment Unsure at this time. Pateint reports that she is I in ADL 's. Therapy evaluation when pateint medically stable. Comment Pending needs after hospitalization. Discharge Plan Home Additional Comment Too soon to tell. Anticipate home vs. SNF pending progress. Whiteboard Updated in Patient Room with Yes name and ext. # of Warm In Review Status In Process Next Review Type Continued Stay Review
[2018-08-12 10:43] LABS: Fractionated Inspired Oxygen 75; HCO3 ABG 19 mmol/L (22-26); Oxygen Saturation ABG 91 % (95-100); TCO2 ABG 20 mmol/L (21-31)
[2018-08-12 11:49] LABS: B Type Natriuretic Peptide 1420 (<100)
--- NOTE | 2018-08-12 11:55 | DI.ECHO.S_ITS ---
[facility] +---------+ [facility] +---------+ : : [address] : : : : [id number] : : : : Phone: [phone]+ Echocardiogram Report + + :Name: INGRID KIDD Study Date: 08/12/2018 Height: 62 in : :[facility] Weight: 177 lb : : Gender: Female BSA: 1.8 m2 : :: 1935 Age: 83 yrs BP: 108/78 mmHg: :Reason For Study: CHF : :Ordering Physician: Srinivasan : :Hospitalist Performed By: Tiffany Gottlieb : :Referring: Brittney SOLOMON E : + + Interpretation Summary The left ventricle is normal in size. The left ventricular ejection fraction is normal. The ejection fraction is estimated to be 55-60%. LVEF has not changed. There is septal wall hypokinesis probably due to RBBB. There is a mild dyssynchronous contraction pattern, consistent with a conduction abnormality. Diastolic parameters suggest a relaxation abnormality of the left ventricle, consistent with probable normal filling pressures. The right ventricle is normal in size and function. The right ventricular systolic pressure is estimated to be at least 47 mmHg based on an estimated right atrial pressure of 3 mm Hg. The left atrium is mildly dilated. Right atrial size is normal. There is no significant valvular heart disease. The aortic root is normal size. Procedure: A two-dimensional transthoracic echocardiogram with color flow and Doppler was performed. The study quality was technically adequate. Comparison is made with the echocardiogram of 09/26/17. The patient had a bundle branch block rhythm during the exam. Left Ventricle: The left ventricle is normal in size. There is normal left ventricular wall thickness. The left ventricular ejection fraction is normal. The ejection fraction is estimated to be 55-60%. There is septal wall hypokinesis. There is a mild dyssynchronous contraction pattern, consistent with a conduction abnormality. Diastolic parameters suggest a relaxation abnormality of the left ventricle, consistent with probable normal filling pressures. Right Ventricle: The right ventricle is normal in size and function. Atria: The left atrium is mildly dilated. Right atrial size is normal. There is no Doppler evidence for an interatrial shunt. Mitral Valve: The mitral valve leaflets appear mildly thickened, but open well. There is mild mitral annular calcification. There is trace mitral regurgitation. Aortic Valve: The aortic valve is trileaflet. There is mild aortic valve sclerosis. The aortic valve opens well. No aortic regurgitation is present. Tricuspid Valve: The tricuspid valve is normal. There is mild tricuspid regurgitation. The right ventricular systolic pressure is estimated to be at least 47 mmHg based on an estimated right atrial pressure of 3 mm Hg. Pulmonic Valve: The pulmonic valve is not well visualized. There is a trace or physiologic amount of pulmonic regurgitation. There is no significant valvular heart disease. Great Vessels: The aortic root is normal size. The ascending aorta is normal in size. The aortic arch could not be visualized. The pulmonary is not well visualized. The IVC is of normal diameter and collapses greater than 50% with a sniff. This suggests a low right atrial pressure of 3 mm Hg. Pericardium/ Pleura There is no pericardial effusion. There is no pleural effusion. MMode/2D Measurements & Calculations LVIDd: 4.6 cm LVOT diam: 1.9 cm LVIDs: 3.3 cm Ao root diam: 2.7 cm FS: 28.7 % asc Aorta Diam: 3.0 cm EPSS: 0.69 cm IVSd: 0.81 cm LVPWd: 0.88 cm LV kraus. diameter/BSA (cm/m^2): 2.5 LV sys. diameter/BSA (cm/m^2): 1.8 LA A2 area: 22.2 cm2 RA long axis: 4.4 cm LA A4 area: 16.9 cm2 RA area: 13.9 cm2 LA length (vol): 4.9 cm RA vol: 37.2 ml LA vol: 64.3 ml RA : 20.5 ml/m2 LA vol index: 35.4 ml/m2 IVC diam: 1.6 cm RVD1 (basal): 3.6 cm RVD2 (mid): 2.5 cm TAPSE: 2.0 cm Doppler Measurements & Calculations Ao V2 max: 117.2 cm/sec LVOT Max Asad: 78.6 cm/sec Ao V2 mean: 82.1 cm/sec LV V1 max P.5 mmHg Ao max P.5 mmHg LV V1 VTI: 15.2 cm Ao mean P.0 mmHg RENETTA(I,D): 1.8 cm2 Ao V2 VTI: 22.8 cm RENETTA(V,D): 1.8 cm2 sev ratio: 0.67 RENETTA indexed to BSA (cm^2/m^2): 1.0 MV E max asad: 105.8 cm/sec TR max asad: 331.6 cm/sec MV A max asad: 124.1 cm/sec TR max P.0 mmHg MV E/A: 0.85 PA V2 max: 78.1 cm/sec Med Peak E' Asad: 5.3 cm/sec PA V2 mean: 46.6 cm/sec E/E' med: 20.1 PA mean P.0 mmHg Lat Peak E' Asad: 5.4 cm/sec PA Accel Time: 0.06 sec E/E' lat: 19.7 E/e' average: 19.9 MV dec time: 0.15 sec SV(LVOT): 41.8 ml Reading Physician:02:50 PM
[2018-08-12] MEDS: FUROSEMIDE 40 MG/4 ML VIAL IV (12:09)
[2018-08-12] MEDS: SODIUM CHLORIDE 0.9% FLUSH 10 ML IV ×2 (12:10→22:06)
[2018-08-12 12:20] LABS: Troponin I 0.065 ng/mL (0.01-0.034)
[2018-08-12] MEDS: CEFTRIAXONE 1 GM/50 ML FROZ.PIGGY IV (14:06)
[2018-08-12] MEDS: FAMOTIDINE 20 MG/50 ML PIGGYBACK 200 MG IV (14:40)
[2018-08-12] MEDS: ALBUTEROL/IPRATROPIUM 3 ML AMPUL INH ×2 (14:56→17:00)
[2018-08-12] MEDS: AZITHROMYCIN 500 MG in DEXTROSE 5% IN WATER 250 ML IV (15:14)
[2018-08-12] MEDS: CEFEPIME 2 GM in SODIUM CHLORIDE 0.9% 100 ML 200 ML IV (16:56)
[2018-08-12] MEDS: VANCOMYCIN 200 ML 200 MG IV (17:49)
[2018-08-12 18:33] LABS: HCO3 ABG 20 mmol/L (22-26); PCO2 ABG 34.4 mmHg (35-45); PO2 ABG 107 mmHg (80-100); TCO2 ABG 21 mmol/L (21-31); pH ABG 7.37 (7.35-7.45)
[2018-08-12 18:34] LABS: Fractionated Inspired Oxygen 0.85; Oxygen Saturation ABG 98 % (95-100)
[2018-08-12] MEDS: MORPHINE 2 MG/ML INJ 1 MG IV (19:53)
[2018-08-12] MEDS: ALBUTEROL 2.5 MG/3 ML NEB (ADULT) INH (20:26)
[2018-08-12 21:42] LABS: Fractionated Inspired Oxygen 0.85; HCO3 ABG 21 mmol/L (22-26); Oxygen Saturation ABG 95 % (95-100); PCO2 ABG 35.2 mmHg (35-45); PO2 ABG 79 mmHg (80-100); TCO2 ABG 22 mmol/L (21-31); pH ABG 7.38 (7.35-7.45)
[2018-08-12 21:46] LABS: BUN Creatinine Ratio 15.4 (6-22); Blood Urea Nitrogen 20 mg/dL (7-17); Calcium 8.4 mg/dL (8.4-10.2); Carbon Dioxide 21 mmol/L (22-32); Chloride 100 mmol/L (98-107); Estimated Glomerular Filt Rate 39.3 mL/min (>60); Glucose 188 mg/dL (80-110); HEMOLYSIS 22 (0-50); Potassium 4.3 mmol/L (3.4-5.1); Sodium 131 mmol/L (137-145)
[2018-08-12 21:55] LABS: Lactate (Lactic Acid) 2.9 mmol/L (0.7-2.1)
[2018-08-12] MEDS: MORPHINE 2 MG/ML INJ IV (22:00)
--- NOTE | 2018-08-12 22:27 | PC.NURSE ---
marlo note Many small changes to pt today. ST elvations/depressions noted on telemetry. EKG done. Called Dr. Sy to report and he reviewed EKGs in computer. Pt on bipap with FiO2 85%, ipap 12, epap 6. Pt's RR 30-40. Pt has tidal volumes of 700+. ABG done after dinner has normalized. Pt started getting confused about 19:00. She does not know where she is. She keeps trying to get OOB. Pt denies pain. Morphine given for air hunger with no changes, twice. Pt restless, pulling at [place], scratching at IV. Right forearm drsg compromised and catheter partially pulled out. Site removed and new site started in right AC. Confusion continues and worsens, now with delerium. Pt talking about needing to get the chicken off the stove. Pt fighting staff to try to get OOB. Moose DAVALOS called to bedside. Total of 2 mg IV haldol given. Staff physically restraining pt from getting OOB. HR up to 130.
[2018-08-12] MEDS: MAGNESIUM SULFATE 2 GM/50 ML PIGGYBACK IV (22:36)
[2018-08-12] MEDS: HALOPERIDOL 5 MG/ML VIAL 1 MG IV ×2 (23:15→23:53)
[2018-08-12 23:43] LABS: Reflexed Lactate in 2 Hours Y
[2018-08-12] MEDS: HALOPERIDOL 5 MG/ML VIAL 2 MG IV (23:48)
[2018-08-13] VITALS (18 sets, daily range): BP systolic 110–174; BP diastolic 45–80; PULSE 72–124; RESP 10–83; TEMP 37.2–37.6; O2SAT 68–91
--- NOTE | 2018-08-13 01:17 | PM.EVENT ---
Date Patient Seen: 08/13/18 Time Patient Seen: 00:30 Was called to the intensive care unit related to patient agitation. Upon arrival the patient is acutely delirious and is confused and disoriented. Patient does not respond to reorientation. She continues to be on BiPAP for acute hypoxic respiratory failure secondary to community-acquired pneumonia. Repeat HGB at 9:20 p.m. finds a pH of 7.38, pCO2 of 35.2 and PO2 97, bicarb 21 and base excess of -4 on 85% FiO2. Patient continues to be tachypneic in the 40s. She received Haldol IV for acute delirium with improvement in the patient's symptoms to resting quietly. Oxygen saturation is variable between 87 and 90% with respiratory rate maintaining at 32 and tidal volumes on BiPAP of 720. Labs recheck to finding the patient a hypo magnesium at 1.1 and replaced 2 g IV. Her lactate is 2.9 and potassium and phosphate are within normal range. Twelve lead EKG is also obtained stem straight sinus tachycardia with a rate of 102, P are interval 162 milliseconds QRS 156 milliseconds and QTC of 456 mil seconds. Sustaining concern for use of multiple medications with potential for prolong the QT interval. Will draw morning labs early including cardiac panel. Had previously spoke with family this evening in regard to strong possibility of intubation to which they are in agreement to proceed if needed. Will continue to attempt to balance sedation and oxygenation and will continue to re-evaluate need for intubation.
[2018-08-13] MEDS: HALOPERIDOL 5 MG/ML VIAL 2 MG IV (01:22)
[2018-08-13 01:38] LABS: Hematocrit 35.2 % (36-46); Hemoglobin 11.2 g/dL (12.0-16.0); Mean Corpuscular HGB Conc 31.9 % (30-36); Mean Corpuscular Hemoglobin 28.2 PG (26-34); Mean Corpuscular Volume 88.5 fL (80-100); Platelet Count 220 X10^3/uL (150-400); Red Blood Cell Count 3.98 X10^6/uL (4.0-5.2); Red Cell Distribution Width 15.5 % (11.6-14.8); White Blood Cell Count 29.1 X10^3/uL (4.5-11.0)
[2018-08-13] MEDS: MORPHINE 2 MG/ML INJ IV (01:38)
[2018-08-13 01:39] LABS: Add Manual Diff / Slide Review YES
[2018-08-13 01:40] LABS: Lactate 2HR (Lactic Acid Rflx) 2.4 mmol/L (0.7-2.1)
[2018-08-13 01:44] LABS: Blood Urea Nitrogen 21 mg/dL (7-17); Calcium 8.3 mg/dL (8.4-10.2); Carbon Dioxide 21 mmol/L (22-32); Chloride 101 mmol/L (98-107); Estimated Glomerular Filt Rate 36.1 mL/min (>60); Glucose 194 mg/dL (80-110); HEMOLYSIS < 15 (0-50); Magnesium 1.9 mg/dL (1.6-2.3); Potassium 4.7 mmol/L (3.4-5.1); Sodium 132 mmol/L (137-145)
[2018-08-13] MEDS: HALOPERIDOL 5 MG/ML VIAL 1 MG IV (01:48)
[2018-08-13 01:54] LABS: Creatine Kinase 77 U/L (30-135)
[2018-08-13 02:00] LABS: Procalcitonin 30.33 ng/mL (<0.5)
[2018-08-13 02:02] LABS: B Type Natriuretic Peptide 1380 (<100)
[2018-08-13] MEDS: ETOMIDATE 2 MG/ML VIAL 20 MG IV (02:22)
[2018-08-13] MEDS: SUCCINYLCHOLINE 200 MG/10 ML VIAL 120 MG IV (02:22)
--- NOTE | 2018-08-13 02:29 | DI.RAD.S_ITS ---
PROCEDURE: XR CHEST 1V INDICATIONS: post intubation tube placement TECHNIQUE: One view of the chest was acquired. COMPARISON: [facility], CR, XR CHEST 1V, 08/12/2018, 7:32. FINDINGS: Surgical changes and devices: ET tube projects approximately 5.8 cm superior to the edward. Lungs and pleura: Diffuse bilateral lung opacification not significantly changed compared to prior examination and could represent multilobar pneumonia or ARDS. No pleural effusions or pneumothorax. Mediastinum: Mediastinal contours appear normal. Heart size is normal. Bones and chest wall: No suspicious bony lesions. Overlying soft tissues appear unremarkable. IMPRESSION: ET tube 5.8 cm superior to the edward. Dictated by: Esther Quiroz MD, PhD on 08/13/2018 at 8:36 Approved by: Esther Quiroz MD, PhD on 08/13/2018 at 8:37
[2018-08-13 02:30] LABS: Total Cells Counted 100
[2018-08-13 02:31] LABS: Anisocytosis 2+; Neutrophils Absolute Manual 27936 /uL (3000-5900)
--- NOTE | 2018-08-13 02:33 | ED.CONSULT ---
ED Provider Consult/Code Note General Date Patient Seen: 08/13/18 Time Patient Seen: 02:15 Reason for Admission: sob xtoday Events leading to Consult/Code: Patient admitted for pneumonia. Becoming more hypoxic and agitated despite BiPAP. Consult for intubation Cardiac Rhythm: Sinus rhythm Additional: Oxygen saturations 80% on 91% FiO2 BiPAP. Respiratory Auscultation: clear to auscultation bilaterally ET Tube Size: 7.5 Tube Secured Depth (cm): 19 Tube Secured Location: teeth Tube Placement Confirmation: Visualized tube passing through cords, Equal breath sounds bilaterally, No breath sounds over epigastrium and Confirmation by capnometry Care Provided Description of care provided: Patient intubated with 20 mg of etomidate and 120 mg of succinylcholine. Patient did desat to the 60s during intubation. Patient was intubated with 7 have to with the assistance of a glide scope with 1st pass success. Tube was visualized passing through the cords. Post procedural sedation and vent settings and chest x-ray ordered by hospitalist. Oxygen saturations improved to greater than 90% after intubation. Outcome Outcome: Patient intubated
[2018-08-13] MEDS: fentaNYL 100 MCG/2 ML INJ 50 MCG IV (02:35)
[2018-08-13] MEDS: MIDAZOLAM 2 MG/2 ML VIAL 1 MG IV (02:35)
[2018-08-13 02:40] LABS: Troponin I 0.163 ng/mL (0.01-0.034)
[2018-08-13] MEDS: MIDAZOLAM 50 MG in DEXTROSE 5% IN WATER 250 ML 5.3 ML IV (03:11)
[2018-08-13] MEDS: fentaNYL 1,000 MCG in DEXTROSE 5% IN WATER 250 ML 20 ML IV (03:31)
--- NOTE | 2018-08-13 03:54 | P.DS_ITS ---
History of Present Illness Date Patient Seen: 08/13/18 Time Patient Seen: 03:48 Chief complaint: sob xtoday Narrative: This is an 82-year-old female presenting to the emergency department this morning with sudden onset of pneumonia, confusion, hypoxia. She appears to have acute sepsis with a lactate of 3.6 and white blood count of 22. She spent yesterday at her grandson's graduation from high school in [place], came home and went to bed normally and when she woke up this morning was apparently ill. It is challenging to piece together the events as she is wearing a BiPAP mask and also seems somewhat confused by what happened. She tends to be tangential. Her granddaughter Loren Self is present and explains that at 11:30 a.m. this morning she called her to invite her to dinner. Within a minute she realized that her grandmother was incoherent and so went right over to get her and bring her to the hospital. She admits having some chills but denies fevers. She had mild substernal chest pain but no reported cough. On presentation to the emergency department she was 65% on room air and the chest x-ray shows bilateral pneumonia.. She lives alone in her own house 4 blocks away from the hospital. She has had pneumonia once before apparently related to an episode of shingles. She is not a smoker but did smoke until she was age 42 approximately. She is not on any inhalers. There is no wheezing. The patient is a FULL CODE. Discharge Providers Date of admission: 08/11/18 15:30 Discharge Date: 08/13/18 Primary care physician: Bina Montes PA-C Consults: 08/11/18 14:58 Consult to Dietitian, Adult Routine Comment: Reason For Exam: Patient on Ventilator and NPO 08/11/18 23:28 Consult to Physical Therapy Evaluate & Treat Comment: mauricio WELDON Physician Instructions: Evaluate and Treat 08/13/18 02:48 Consult to Dietitian, Adult Routine Comment: Reason For Exam: Patient on Ventilator and NPO 08/13/18 03:25 Consult to PICC Line RN Urgent Comment: Discharge provider: ANOOP Browne Summary Discharge Diagnosis: 1. Acute hypoxic respiratory failure 2. Community-acquired bilateral pneumonia 3. Leukocytosis 4. Severe Sepsis criteria met 5. Hypertension 6. Gout 7. GERD 8. Diabetes mellitus type 2 9. Chronic kidney disease stage III Hospital Course: The patient has demonstrated progressive respiratory failure having initially been on BiPAP FiO2 50% and in fact tried heat high-flow oxygen to patient tolerated only for about 45 minutes prior to returning back to BiPAP due to tachypnea. The patient during the day continued to deteriorate requiring FiO2 on BiPAP to go up to 90%. Patient has had increasing confusion and ag itation decreasing the effects of BiPAP therapy and was maintaining a respiratory rate approximately 40 breaths per minute. As the patient was medicated to decrease oxygen demand her minute volume decreased thereby precipitating hypoxemia. The patient was intubated at 2:30 a.m. on 08/13/2018 with a 7.5 ET tube that is at 23 cm at the lip. Position was confirmed by chest x-ray which demonstrates the ET tube approximately 3 cm above the edward and bilateral lung last have a ground-glass appearance consistent with ARDS. Patient is placed on a ventilator on PRVC mode on 100% FiO2 be taking oxygen saturation in the mid 80s and occasionally to 90%. Additionally the patient has sepsis markers including leukocytosis at 29.1, procalcitonin of 30.3, lactate of 2.4. She has elevated renal function at 1.4 and was at 1.2 upon admission. Patient also has an elevated BNP at 13 80 this evening and is diuresed with Lasix. The patient was changed from azithromycin and Rocephin to cefepime and vancomycin and azithromycin, the 1st dose this afternoon. The patient has a history of hypertension with home meds have been held and presently does not require vasopressor agents. Spoke with Dr. Guy Nur at [facility], pulmonary critical care who has agreed to accept the patient following review of radiology images, echo report and phone report. The patient is awaiting transfer via critical care transport service. CRITICAL CARE TIME: 90 minutes is spent in [id number] with the patient for procedures evaluations and re-evaluations. Status at Discharge Cognitive/behavioral status at discharge: calm (Sedated on midazolam and fentanyl) Functional status at discharge: bed bound Overall status at discharge: other (Patient is being transferred to higher level of care.) Time Spent with Patient Greater than 30 minutes Exam Vital Signs (past 8 hours): - 08/12/18 20:44 08/12/18 21:33 08/13/18 00:19 Temperature 99.7 F H 100.2 F H 99.0 F Pulse Rate 103 H 104 H Respiratory Rate 40 H 29 H Blood Pressure 135/89 128/45 L Pulse Oximetry 95 88 L 08/13/18 00:29 Temperature Pulse Rate Respiratory Rate Blood Pressure 128/45 L Pulse Oximetry Fraction of Inspired Oxygen 0.90 Oxygen Delivery Method BiPAP Oxygen Flow Rate 0 Const General: patient mechanically ventilated Nutritional Appearance: well nourished Orientation: other (Sedated) [facility] Head: normal to inspection Nose: nares normal Face and sinus: face symmetric Mouth: mucous membranes abnormal (Dry) Throat: posterior oropharynx normal Eyes Sclera: sclerae normal Pupils: PERRL EOM: EOM intact bilaterally Neck Neck: normal visual inspection, no meningeal signs and trachea midline Thyroid: thyroid normal Carotids: no bruits Chest Chest: normal inspection of the chest Resp Effort & Inspection: labored, tachypneic and symmetric chest movement Auscultation: rhonchi (across all lung last bilaterally) Cardio Rate: tachycardic Rhythm: regular rhythm Heart Sounds: S1 normal and S2 normal Pulses: radial pulses present and dorsalis pedis present GI Inspection: obesity Palpation: soft Auscultation: normal bowel sounds Back/Spine/Pelvis Back: No back tenderness Skin General: no rashes or lesions noted Neuro General: awake (disoriented, delirium) and moves all extremities Cognition: abnormal cognition Speech: speech normal Motor: strength 5/5 throughout Extrem General: full ROM, no joint enlargement and no calf tenderness Psych Mental Status: other (delirium) Speech and Movement: agitated Mood: other (delirium) Objective Labs Result Diagrams: 08/13/18 01:21 08/13/18 01:21 Labs: Laboratory Results - last 24 hr 08/12/18 08/12/18 08/12/18 05:00 05:00 05:00 WBC 29.2 H RBC 4.00 Hgb 11.2 L Hct 35.6 L MCV 89.0 MCH 28.1 MCHC 31.5 RDW 15.2 H Plt Count 236 Neut % (Auto) Not Reportable Lymph % (Auto) Not Reportable [place] % (Auto) Not Reportable Eos % (Auto) Not Reportable Baso % (Auto) Not Reportable Lymph # (Auto) Not Reportable [place] # (Auto) Not Reportable Baso # (Auto) Not Reportable Total Counted 100 Seg Neutrophils % 74.0 H Band Neutrophils % 18.0 H Lymphocytes % (Manual) 5.0 L Monocytes % (Manual) 3.0 Neutrophils # (Manual) 39781 H RBC Morphology See below Anisocytosis 2+ H ABG pH ABG pCO2 ABG pO2 ABG HCO3 ABG Total CO2 ABG O2 Saturation ABG Base Excess FiO2 Sodium 133 L Potassium 5.1 Chloride 106 Carbon Dioxide 21 L BUN 19 H Creatinine 1.20 H Estimated GFR 43.1 L BUN/Creatinine Ratio 15.8 Glucose 187 H D Lactate 1.3 Calcium 8.0 L Phosphorus Magnesium Total Creatine Kinase CK-MB (CK-2) CK-MB (CK-2) Rel Index Troponin I B-Natriuretic Peptide Procalcitonin 08/12/18 08/12/18 08/12/18 05:00 10:00 11:15 WBC RBC Hgb Hct MCV MCH MCHC RDW Plt Count Neut % (Auto) Lymph % (Auto) [place] % (Auto) Eos % (Auto) Baso % (Auto) Lymph # (Auto) [place] # (Auto) Baso # (Auto) Total Counted Seg Neutrophils % Band Neutrophils % Lymphocytes % (Manual) Monocytes % (Manual) Neutrophils # (Manual) RBC Morphology Anisocytosis ABG pH 7.29 L ABG pCO2 39.2 ABG pO2 68 L ABG HCO3 19 L ABG Total CO2 20 L ABG O2 Saturation 91 L ABG Base Excess -8.0 L FiO2 75 Sodium Potassium Chloride Carbon Dioxide BUN Creatinine Estimated GFR BUN/Creatinine Ratio Glucose Lactate Calcium Phosphorus Magnesium Total Creatine Kinase CK-MB (CK-2) CK-MB (CK-2) Rel Index Troponin I B-Natriuretic Peptide 1420 H Procalcitonin 30.52 H 08/12/18 08/12/18 08/12/18 11:15 18:17 21:26 WBC RBC Hgb Hct MCV MCH MCHC RDW Plt Count Neut % (Auto) Lymph % (Auto) [place] % (Auto) Eos % (Auto) Baso % (Auto) Lymph # (Auto) [place] # (Auto) Baso # (Auto) Total Counted Seg Neutrophils % Band Neutrophils % Lymphocytes % (Manual) Monocytes % (Manual) Neutrophils # (Manual) RBC Morphology Anisocytosis ABG pH 7.37 ABG pCO2 34.4 L ABG pO2 107 H ABG HCO3 20 L ABG Total CO2 21 ABG O2 Saturation 98 ABG Base Excess -6.0 L FiO2 0.85 Sodium 131 L Potassium 4.3 Chloride 100 Carbon Dioxide 21 L BUN 20 H Creatinine 1.30 H Estimated GFR 39.3 L BUN/Creatinine Ratio 15.4 Glucose 188 H Lactate Calcium 8.4 Phosphorus Magnesium Total Creatine Kinase CK-MB (CK-2) CK-MB (CK-2) Rel Index Troponin I 0.065 H B-Natriuretic Peptide Procalcitonin 08/12/18 08/12/18 08/12/18 21:26 21:26 21:28 WBC RBC Hgb Hct MCV MCH MCHC RDW Plt Count Neut % (Auto) Lymph % (Auto) [place] % (Auto) Eos % (Auto) Baso % (Auto) Lymph # (Auto) [place] # (Auto) Baso # (Auto) Total Counted Seg Neutrophils % Band Neutrophils % Lymphocytes % (Manual) Monocytes % (Manual) Neutrophils # (Manual) RBC Morphology Anisocytosis ABG pH 7.38 ABG pCO2 35.2 ABG pO2 79 L ABG HCO3 21 L ABG Total CO2 22 ABG O2 Saturation 95 ABG Base Excess -4.0 L FiO2 0.85 Sodium Potassium Chloride Carbon Dioxide BUN Creatinine Estimated GFR BUN/Creatinine Ratio Glucose Lactate 2.9 H Calcium Phosphorus 3.0 Magnesium 1.0 L Total Creatine Kinase CK-MB (CK-2) CK-MB (CK-2) Rel Index Troponin I B-Natriuretic Peptide Procalcitonin 08/13/18 08/13/18 08/13/18 01:21 01:21 01:21 WBC 29.1 H RBC 3.98 L Hgb 11.2 L Hct 35.2 L MCV 88.5 MCH 28.2 MCHC 31.9 RDW 15.5 H Plt Count 220 Neut % (Auto) Not Reportable Lymph % (Auto) Not Reportable [place] % (Auto) Not Reportable Eos % (Auto) Not Reportable Baso % (Auto) Not Reportable Lymph # (Auto) Not Reportable [place] # (Auto) Not Reportable Baso # (Auto) Not Reportable Total Counted 100 Seg Neutrophils % 83.0 H Band Neutrophils % 13.0 H Lymphocytes % (Manual) 3.0 L Monocytes % (Manual) 1.0 L Neutrophils # (Manual) 71174 H RBC Morphology See below Anisocytosis 2+ H ABG pH ABG pCO2 ABG pO2 ABG HCO3 ABG Total CO2 ABG O2 Saturation ABG Base Excess FiO2 Sodium 132 L Potassium 4.7 Chloride 101 Carbon Dioxide 21 L BUN 21 H Creatinine 1.40 H Estimated GFR 36.1 L BUN/Creatinine Ratio 15.0 Glucose 194 H Lactate 2.4 H Calcium 8.3 L Phosphorus Magnesium Total Creatine Kinase CK-MB (CK-2) CK-MB (CK-2) Rel Index Troponin I B-Natriuretic Peptide 1380 H Procalcitonin 08/13/18 08/13/18 08/13/18 01:21 01:21 01:21 WBC RBC Hgb Hct MCV MCH MCHC RDW Plt Count Neut % (Auto) Lymph % (Auto) [place] % (Auto) Eos % (Auto) Baso % (Auto) Lymph # (Auto) [place] # (Auto) Baso # (Auto) Total Counted Seg Neutrophils % Band Neutrophils % Lymphocytes % (Manual) Monocytes % (Manual) Neutrophils # (Manual) RBC Morphology Anisocytosis ABG pH ABG pCO2 ABG pO2 ABG HCO3 ABG Total CO2 ABG O2 Saturation ABG Base Excess FiO2 Sodium Potassium Chloride Carbon Dioxide BUN Creatinine Estimated GFR BUN/Creatinine Ratio Glucose Lactate Calcium Phosphorus Magnesium 1.9 Total Creatine Kinase 77 CK-MB (CK-2) TNP CK-MB (CK-2) Rel Index TNP Troponin I 0.163 H* B-Natriuretic Peptide Procalcitonin 30.33 H Discharge Plan Discharge Plan Patient Disposition: [facility] Other facility: [facility] Under care of provider: Dr. Guy Nur Discharge comment: The patient is being transferred via critical care ambulance for higher level of care following consultation with the receiving provider noted above. Discharge Med Rec/Prescriptions Prescriptions: Continued fluoxetine 20 MG tablet 60 mg PO QDAY Qty: 0 RF: 0 allopurinol 300 MG tablet 300 mg PO QDAY Qty: 0 RF: 0 amlodipine 10 MG tablet 10 mg PO HS Qty: 0 RF: 0 aspirin 81 MG tablet,delayed release (DR/EC) 81 mg PO QDAY Qty: 0 RF: 0 fluticasone propionate [Flonase Allergy Relief] 9.9 ML spray,suspension 2 spray Intranasal QDAYP PRN (Reason: Allergy Symptoms) Qty: 0 RF: 0 metformin [Glucophage XR] 750 MG tablet extended release 24 hr 1,500 mg PO QPM Qty: 0 RF: 0 metoprolol tartrate 100 MG tablet 150 mg PO BID Qty: 0 RF: 0 omeprazole 40 MG capsule,delayed release(DR/EC) 40 mg PO QDAY Qty: 0 RF: 0 gabapentin 100 MG capsule 100 mg PO Q8HP PRN (Reason: Pain, Moderate) Qty: 0 RF: 0 PreserVision AREDS 1 EACH capsule 1 cap PO QDAY Qty: 0 RF: 0 Tradjenta 5 MG tablet 5 mg PO QDAY Qty: 0 RF: 0 cyanocobalamin (vitamin B-12) 1,000 MCG tablet extended release 1,000 mcg PO QDAY Qty: 0 RF: 0 naproxen 500 MG tablet 500 mg PO PRN (Reason: Pain, Mild) Qty: 0 RF: 0 amitriptyline 10 mg tablet 10 mg PO BID Qty: 60 RF: 5 levothyroxine 25 mcg tablet 25 mcg PO DAILY RF: 0 cholecalciferol (vitamin D3) 1,000 unit tablet 1,000 unit PO DAILY RF: 0 simvastatin 20 mg tablet 20 mg PO QPM RF: 0 clobetasol 0.05 % ointment 1 applic Topical BID PRN (Reason: Vaginal Irritation) RF: 0 Follow up/Referrals: Bina Montes PA-C [Primary Care Provider] - Discharge Health Status Brief summary of current health status: Patient was admitted on 08/11/2018 following an abrupt onset of shortness of breath and confusion having been in her usual state health previous day. The patient is found to be in acute hypoxic respiratory failure with sepsis. She was admitted to the intensive care unit with initiation BiPAP, antibiotics and supportive medical therapy. The patient is FULL CODE. The patient's status deteriorated the evening of 08/12/2018 whereupon the patient was intubated at 2:30 a.m. on 08/13/2018. She is ventilated on PRVC mode with peep of 10 result plateau pressures approximately 14. With the settings the patient has an oxygen saturation level of 89% on 100% FiO2. Multidrug resistant organism: No MDRO Date verified: 08/13/18 Precautions: Wade Provider Discharge Instructions Diet: Nothing by Mouth Diet comment: NPO Activity: Patient is sedated on midazolam and fentanyl. Oxygen: Ventilatory support Other treatments: Midazalam infusion, titrate to sedation Fentanyl infusion, titrate to sedation Normal saline 50 cc/hour Discharge Data Primary Care Provider: Bina Montes Attending Provider: Brittney Sy Admit Date/Time: 08/11/18 15:30 Quality VTE Deep Vein Thrombosis/Pulmonary Embolism Present on Admission: No
[2018-08-13] MEDS: CEFEPIME 2 GM in SODIUM CHLORIDE 0.9% 100 ML 200 ML IV (03:57)
[2018-08-13 04:17] LABS: Fractionated Inspired Oxygen 100; HCO3 ABG 19 mmol/L (22-26); Oxygen Saturation ABG 85 % (95-100); PCO2 ABG 40.1 mmHg (35-45); PO2 ABG 57 mmHg (80-100); TCO2 ABG 20 mmol/L (21-31); pH ABG 7.28 (7.35-7.45)
[2018-08-13 05:32] LABS: Blood Urea Nitrogen 24 mg/dL (7-17); Calcium 8.2 mg/dL (8.4-10.2); Carbon Dioxide 19 mmol/L (22-32); Chloride 102 mmol/L (98-107); Estimated Glomerular Filt Rate 33.3 mL/min (>60); Glucose 215 mg/dL (80-110); HEMOLYSIS 23 (0-50); Potassium 4.4 mmol/L (3.4-5.1); Sodium 131 mmol/L (137-145)
--- NOTE | 2018-08-13 05:52 | PC.NURSE ---
Addendum entered by Jossie Vargas R.N. 08/13/18 07:00: Out the door via ambulance at 0658. Family in prior to pt leaving. Packet given to ambulance crew. Original Note: Plan is to transport pt to [facility], daughter Malathi here and took pt yellow metal watch, yellow metal band with clear stone and yellow metal band with red stone. Unable to remove yellow metal band from 3rd finger of left hand as it is too tight.
--- NOTE | 2018-08-13 07:45 | PT.IPTN ---
Current Diagnoses Sepsis, unspecified organism (08/11/18) Acute respiratory failure with hypoxia (08/11/18) Severe sepsis without septic shock (08/11/18) Physical Therapy Treatment Note Notes Pt's medical status has continued to decline, now needing intubation. Pt to be transferred to [facility] for higher level of care. Acute PT will sign off at this time.
[2018-08-13 08:25] LABS: Bacteria Urine None Seen
[2018-08-13 08:27] LABS: Appearance Urine UA SL CLOUDY; Bilirubin Urine UA NEGATIVE (NEGATIVE); Color Urine UA YELLOW; Glucose Urine UA NEGATIVE (Negative); Ketones Urine UA NEGATIVE (NEGATIVE); Leukocyte Esterase Urine UA TRACE (NEGATIVE); Nitrite Urine UA NEGATIVE (Negative); Occult Blood Urine UA 3+ (Negative); Protein Urine UA 1+ (Negative); Specific Gravity Urine UA 1.025 (1.000-1.035); Urobilinogen Urine UA 0.2 E.U./dL (0.2)
[2018-08-13 08:34] LABS: RBC Urine 5-10/HPF (0-5/HPF); WBC Urine 5-10/HPF (0-5/HPF)
[2018-08-13 08:35] LABS: Amorphous Sediment Urine 2+; Culture Indicated Urine Specimen Cultured; Renal Epithelial Cells Urine 1-5/HPF (0-1/HPF)
--- NOTE | 2018-08-13 09:01 | PC.NURSE ---
0730- Notified by ED staff that pt that was d/c'd from 103 is unable to be transported to by [facility] ambulance staff due to decreased SPO2 60%s on 100% FIO2 PEEP 15 TV 250 RR 18. Rec'd back to room 103. Bedside report from siding stapler. Per RN, Dr. Prasad assessed pt and noted that ETT was in correct position as previously placed. Cuff pressure was checked and no leak detected. Upon this RNs assessment, Bilateral breath sounds are CTAB anteriorly. Very scant, bloody sputum suctioned from ETT. Cough reflex noted with suctioning. Pupils are 2mm and briskly reactive to light bilaterally. Extremities are warm and 2+ pulses are palpated. HRR with SR BBB noted on EMS transport monitor. Fentanyl is infusing to PIV at 0.1 mcg/kg/min and Versed at 5 ml/hr. Dr. Curtis to bedside. Reported above findings and requesting orders for further interventions- VORB for STAT ABG and UA with culture. RT at bedside assessing vent settings. PEEP increased to 20 and Pt sat up to 45 degree positioning on stretcher. SPO2 increases from 70%s to 89-91%. Results of ABG are reported to Dr. Curtis. Plan is to transfer to via airlift. Airlift staff to unit approx [id number]. Report given by this RN as well as [facility] siding stapler to airlift RN. Pt transferred from stretcher to stretcher with 6P staff assist. Pt left with airlift staff 0824. Family at bedside aware and agreeable to plan of care. Updated report to RN given by [facility] siding stapler. Dr. Curtis spoke with receiving provider and gave update.
[2018-08-13 09:03] LABS: HCO3 ABG 20 mmol/L (22-26); Oxygen Saturation ABG 77 % (95-100); PCO2 ABG 46.5 mmHg (35-45); PO2 ABG 49 mmHg (80-100); TCO2 ABG 21 mmol/L (21-31); pH ABG 7.24 (7.35-7.45)
[2018-08-13 09:04] LABS: Fractionated Inspired Oxygen 100
--- NOTE | 2018-08-13 11:56 | CM.DPC ---
DCP/continued: Received notification that patient will be transferring to [facility] for higher level of care. P: Transfer GEORGETTE Mcclain
== END 2018-08-13 08:24 | disposition short-term general hospital (02) | DRG 871 ==
LOC: ED 14:38 → ICU 15:32
PROVIDERS: Nurse Practitioner Adult Health; Admitting Provider Family Medicine; Emergency Provider Emergency Medicine; Family Provider Physician Assistant; PCP Physician Assistant; Visit Provider Family Medicine
DX: A41.9 Sepsis, unspecified organism (principal); J96.01 Acute respiratory failure with hypoxia; J80 Acute respiratory distress syndrome; I50.31 Acute diastolic (congestive) heart failure; G93.41 Metabolic encephalopathy; J15.9 Unspecified bacterial pneumonia; E87.2 Acidosis; I24.8 Other forms of acute ischemic heart disease; N17.9 Acute kidney failure, unspecified; I12.9 Hypertensive chronic kidney disease with stage 1 through stage 4 chronic kidney disease, or unspecified chronic kidney disease; N18.3 Chronic kidney disease, stage 3 (moderate); R65.20 Severe sepsis without septic shock; E11.9 Type 2 diabetes mellitus without complications; F32.9 Major depressive disorder, single episode, unspecified; M10.9 Gout, unspecified; K21.9 Gastro-esophageal reflux disease without esophagitis
CPT/HCPCS: 36415; 36591; 36600; 71045; 80048; 80053; 81001; 82550; 82805; 82962; 83605; 83690; 83735; 83880; 84100; 84145; 84484; 85025; 87040; 87070; 87077; 87086; 87147; 87186; 87205; 87633; 87797; 93005; 93041; 93306; 94002; 94640; 94660; 94770; 94799; 96365; 96366; 99285; 99291; J0330; J0692; J1630; J1650; J1940; J1956; J2250; J2270; J3010; J7613